=== PATIENT | male | born 1950 | race Caucasian/White ===

== ENCOUNTER 2020-10-23 12:51 | Inpatient (IN) ==
[2020-10-23 13:30] LABS: Basophils # (auto) 0.02 K/uL (0-0.2); Basophils % (auto) 0.2 %; Eosinophils % (auto) 0.9 %; Hematocrit (blood only) 48.5 % (42-52); Hemoglobin 16.2 g/dL (14.0-18.0); Immature Granulocytes # (auto) 0.05 K/uL (0.00-0.02); Immature Granulocytes % (auto) 0.4 %; Lymphocytes # (auto) 1.21 K/uL (1.2-3.4); Lymphocytes % (auto) 10.8 %; Mean Corpuscular Hemoglobin 31.9 pg (25-34); Mean Corpuscular Hgb Conc 33.4 g/dL (32-36); Mean Corpuscular Volume 95.5 fL (80-100); Mean Platelet Volume 9.8 fL (7.4-10.4); Monocytes # (auto) 0.76 K/uL (0.11-0.59); Monocytes % (auto) 6.8 %; Neutrophils # (auto) 9.08 K/uL (1.4-6.5); Neutrophils % (auto) 80.9 %; Platelet Count 237 K/uL (130-400); RDW Coefficient of Variation 13.2 % (11.5-14.5); RDW Standard Deviation 45.7 fL (36.4-46.3); Red Blood Count 5.08 M/uL (4.7-6.1); White Blood Count 11.22 K/uL (4.8-10.8)
[2020-10-23 13:41] LABS: INR 1.2 (0.9-1.1); Partial Thromboplastin Time 26.7 Seconds (21.0-31.0); Prothrombin Time 12.7 Seconds (9.0-12.0)
--- NOTE | 2020-10-23 13:54 | XRay Report ---
XR chest 1V portable HISTORY: 70 years-old Male SANDY acute shortness of breath COMPARISON: None TECHNIQUE: Portable AP view of the chest FINDINGS: Cardiac silhouette is enlarged. Pulmonary vascular congestion. Bilateral reticular opacities. There i s no pneumothorax or large pleural effusion. Inferior costophrenic angles are excluded from the field -of-view. IMPRESSION: Cardiomegaly with bilateral reticular opacities suggestive of pulmonary vascular congesti on versus a nonspecific pneumonitis. ACT 112: Negative or not required by law. The above report was generated using voice recognition software. It may contain grammatical, syntax o r spelling errors. Electronically signed by: Fito Wiggins M.D. 10/23/2020 1:52 PM
[2020-10-23 13:59] LABS: Albumin Globulin Ratio 0.6 (0.9-2); Albumin Level 2.9 gm/dl (3.4-5.0); BUN Creatinine Ratio 15.5 (10-20); Bilirubin,Total 0.7 mg/dl (0.2-1); Calcium 8.9 mg/dl (8.5-10.1); Creatinine Clr Calc Pharmacy 94.3 ml/min; Est GFR (African American) 89.5; Est GFR (Non-African American) 77.3; Globulin 4.7 gm/dl (2.5-4.0); Potassium 4.7 mmol/L (3.5-5.1); Total Protein 7.6 gm/dl (6.4-8.2); Troponin I 0.308 ng/ml (0-0.045)
[2020-10-23] MEDS ORDERED: Heparin IV Adult Wt-Based Low-Dose WITH Bolus Protocol IV STA (14:13)
[2020-10-23 14:20] LABS: Beta-Hydroxybutyrate 9.27 mg/dl (0.2-2.81)
[2020-10-23] MEDS ORDERED: FUROSEMIDE 40 MG/4 ML VIAL IV STA (14:35)
--- NOTE | 2020-10-23 14:53 | Emergency Department Note ---
Impression & Plan SANDY (dyspnea on exertion), Non-ST elevation NC (NSTEMI), Fluid overload ED Provider Note Provider: Sven Mejia MD DATE OF SERVICE:10/23/2020 CHIEF COMPLAINT: Dyspnea on exertion HISTORY OF PRESENT ILLNESS: Patient is a 70-year-old gentleman history of type 2 diabetes and hypertension presenting here today referred from his primary care office for evaluation of abnormal EKG and dyspnea on exertion. Patient is with past 6 weeks he had dyspnea on exertion with any exertion. Denies chest pain. Denies any chest pain or shortness of breath at rest. Patient states he knows may be little bit leg swelling but denies any pain in his arms jaw back abdomen. Denies nausea or vomiting. Denies fever or significant cough. Patient states has not had issues like this before but it seems to be getting worse the shortness of breath when he exerts himself. Patient was given 4 baby aspirin prior to arrival. REVIEW OF SYSTEMS: A total of 10 review of systems was obtained and negative except as stated above in the HPI. PAST MEDICAL HISTORY: As noted above MEDICATIONS: Reviewed home medications of the patient. SOCIAL HISTORY: Former smoker, lives at home with PHYSICAL EXAM: GENERAL: alert and oriented in no acute distress on stretcher Head: normocephalic and atraumatic EYES: No injection, discharge or icterus. NECK: Trachea midline. LUNGS: Airway patent. No retractions. Breath sounds clear HEART: Regular rate and rhythm. No chest wall tenderness ABDOMEN: Soft and non-tender, without guarding or rebound. SKIN: Acyanotic, warm, dry, without rashes EXTREMITIES: Without significant deformity or tenderness with 2+ bilateral lower extremity edema. NEUROLOGICAL: No focal deficits. No aphasia. No facial droop or slurred speech. EK bpm normal sinus rhythm with PVC and right bundle branch block. Do not see clear ST segment elevation QTC is prolonged CONTINUOUS CARDIAC MONITORING: was ordered and showed a heart rate of 96 bpm in normal sinus rhythm occasional PVC Patient's laboratory studies and imaging reviewed. Differential includes Reactive airway disease, pneumonia, pneumothorax, COPD, CHF, infections, cardiac ischemia, pulmonary embolism, musculoskeletal, gastrointestinal, as well as other pathologies. IMPRESSION/MEDICAL DECISION MAKING: Patient immediately seen EKG by the computer reading ST segment elevation but on review does not appear to have actual ST segment elevation and the patient is not having active chest pain or shortness of breath well at rest in the bed. Symptoms ongoing for approximately 6 weeks and likely are related to exertion. Question if he has had some possible underlying cardiac event causing heart failure given some pulmonary edema seen on the chest x-ray and some edema in the lower extremities. No recent travel. I doubt this acute intra-abdominal or biliary related. Does not seem consistent with acute pancreatitis. No shortness of breath at rest. Lower suspicion for acute PE and I doubt acute aortic dissection given the history. Patient states he was already given aspirin today and will start on a heparin bolus and drip given the elevated troponin noted here. Given a dose of some Lasix as it does appear somewhat fluid overloaded. Discussed the patient agreed with the plan for further evaluation here in the hospital. Discussed with hospitalist team. DIAGNOSIS: Dyspnea on exertion, NSTEMI, fluid overload DISPOSITION: Hospitalist will evaluate Patient was agreeable with this plan. Critical Care I have personally spent 31 minutes of critical care time in the direct management of this patient. This includes bedside care, interpretation of diagnostic studies, and testing, discussion with consultants, patient, and family members, and other required patient management activities. These 31 minutes is in excess of all separately billable procedures. Past Med/Surg History Surgical History (Updated 10/23/20 @ 16:00 by Lynn Oneil PA-C) S/P appendectomy Social History Smoking Status: Current every day smoker Feels Safe at Home: Yes Allergies Allergies Allergy/AdvReac Type Severity Reaction Status Date / Time No Known Drug Allergies Allergy Unknown NONE Verified 10/23/20 14:36 Home Meds Home Medications Medication Instructions Recorded Confirmed aspirin 81 mg PO DAILY 10/23/20 10/23/20 citalopram 10 mg PO QPM 10/23/20 10/23/20 losartan 50 mg PO QAM 10/23/20 10/23/20 metformin 1,000 mg PO QAM 10/23/20 10/23/20 Results & Data (ED) Vital Signs Vital Signs - 24 hr 10/23/20 12:57 10/23/20 13:10 10/23/20 13:13 Temperature 36.4 C L Temperature Source Oral Pulse Rate 96 H 101 H 98 H Pulse Rate from SpO2 Sensor 100 H Respiratory Rate 22 26 H 24 Respiratory Effort / Characteristics Non-Labored Respiratory Depth Normal Blood Pressure 125/83 160/100 H Blood Pressure Mean 97 109 Pulse Oximetry 95 94 Oxygen Delivery Method Room Air Sepsis Recent Fever Within 48 Hours No Sepsis New/Unexplained Change in Mental Status No Sepsis Action Taken by Nursing No Action Required 10/23/20 13:20 10/23/20 13:31 10/23/20 15:10 Temperature Temperature Source Pulse Rate 91 H 91 H Pulse Rate from SpO2 Sensor 96 H 92 H Respiratory Rate 20 24 Respiratory Effort / Characteristics Respiratory Depth Blood Pressure 124/76 112/82 Blood Pressure Mean 86 84 Pulse Oximetry 96 95 97 Oxygen Delivery Method Room Air Sepsis Recent Fever Within 48 Hours Sepsis New/Unexplained Change in Mental Status Sepsis Action Taken by Nursing 10/23/20 15:55 Temperature Temperature Source Pulse Rate 91 H Pulse Rate from SpO2 Sensor Respiratory Rate 24 Respiratory Effort / Characteristics Respiratory Depth Blood Pressure 112/82 Blood Pressure Mean Pulse Oximetry 97 Oxygen Delivery Method Room Air Sepsis Recent Fever Within 48 Hours Sepsis New/Unexplained Change in Mental Status Sepsis Action Taken by Nursing Laboratory Data Result diagrams: 10/23/20 13:20 10/23/20 13:20 Lab Results 10/23/20 10/23/20 10/23/20 Range/Units 13:20 13:20 13:20 WBC 11.22 H (4.8-10.8) K/uL RBC 5.08 (4.7-6.1) M/uL Hgb 16.2 (14.0-18.0) g/dL Hct 48.5 (42-52) % MCV 95.5 (80-100) fL MCH 31.9 (25-34) pg MCHC 33.4 (32-36) g/dL RDW Std Deviation 45.7 (36.4-46.3) fL RDW Coeff of Galindo 13.2 (11.5-14.5) % Plt Count 237 (130-400) K/uL MPV 9.8 (7.4-10.4) fL Immature Gran % (Auto) 0.4 % Neut % (Auto) 80.9 % Lymph % (Auto) 10.8 % [place] % (Auto) 6.8 % Eos % (Auto) 0.9 % Baso % (Auto) 0.2 % Neut # (Auto) 9.08 H (1.4-6.5) K/uL Lymph # (Auto) 1.21 (1.2-3.4) K/uL [place] # (Auto) 0.76 H (0.11-0.59) K/uL Eos # (Auto) 0.10 (0-0.5) K/uL Baso # (Auto) 0.02 (0-0.2) K/uL Immature Gran # (Auto) 0.05 H (0.00-0.02) K/uL PT 12.7 H (9.0-12.0) Seconds INR 1.2 H (0.9-1.1) APTT 26.7 (21.0-31.0) Seconds PTT Ratio 1.0 Sodium 132 L (136-145) mmol/L Potassium 4.7 (3.5-5.1) mmol/L Chloride 98 (98-107) mmol/L Carbon Dioxide 26 (21-32) mmol/L Anion Gap 8.0 (3-11) BUN 15 (7-18) mg/dl Creatinine 0.98 (0.6-1.4) mg/dl Est Cr Clr Drug Dosing 94.3 ml/min Est GFR ( Amer) 89.5 Est GFR (Non-Af Amer) 77.3 BUN/Creatinine Ratio 15.5 (10-20) Glucose 348 H* (70-99) mg/dl Calcium 8.9 (8.5-10.1) mg/dl Total Bilirubin 0.7 (0.2-1) mg/dl AST 10 L (15-37) U/L ALT 21 (12-78) U/L Alkaline Phosphatase 79 (45-117) U/L Troponin I 0.308 H* (0-0.045) ng/ml NT-Pro-B Natriuret Pep 3755 H (0-900) pg/ml Total Protein 7.6 (6.4-8.2) gm/dl Albumin 2.9 L (3.4-5.0) gm/dl Globulin 4.7 H (2.5-4.0) gm/dl Albumin/Globulin Ratio 0.6 L (0.9-2) Lipase 95 (73-393) U/L Beta-Hydroxybutyric Acd 9.27 H (0.2-2.81) mg/dl COVID-19 Eval Order SARS-CoV-2, RNA, NAAT (NEGATIVE) 10/23/20 10/23/20 Range/Units 13:30 13:30 WBC (4.8-10.8) K/uL RBC (4.7-6.1) M/uL Hgb (14.0-18.0) g/dL Hct (42-52) % MCV (80-100) fL MCH (25-34) pg MCHC (32-36) g/dL RDW Std Deviation (36.4-46.3) fL RDW Coeff of [place] (11.5-14.5) % Plt Count (130-400) K/uL MPV (7.4-10.4) fL Immature Gran % (Auto) % Neut % (Auto) % Lymph % (Auto) % [place] % (Auto) % Eos % (Auto) % Baso % (Auto) % Neut # (Auto) (1.4-6.5) K/uL Lymph # (Auto) (1.2-3.4) K/uL [place] # (Auto) (0.11-0.59) K/uL Eos # (Auto) (0-0.5) K/uL Baso # (Auto) (0-0.2) K/uL Immature Gran # (Auto) (0.00-0.02) K/uL PT (9.0-12.0) Seconds INR (0.9-1.1) APTT (21.0-31.0) Seconds PTT Ratio Sodium (136-145) mmol/L Potassium (3.5-5.1) mmol/L Chloride (98-107) mmol/L Carbon Dioxide (21-32) mmol/L Anion Gap (3-11) BUN (7-18) mg/dl Creatinine (0.6-1.4) mg/dl Est Cr Clr Drug Dosing ml/min Est GFR ( Amer) Est GFR (Non-Af Amer) BUN/Creatinine Ratio (10-20) Glucose (70-99) mg/dl Calcium (8.5-10.1) mg/dl Total Bilirubin (0.2-1) mg/dl AST (15-37) U/L ALT (12-78) U/L Alkaline Phosphatase (45-117) U/L Troponin I (0-0.045) ng/ml NT-Pro-B Natriuret Pep (0-900) pg/ml Total Protein (6.4-8.2) gm/dl Albumin (3.4-5.0) gm/dl Globulin (2.5-4.0) gm/dl Albumin/Globulin Ratio (0.9-2) Lipase (73-393) U/L Beta-Hydroxybutyric Acd (0.2-2.81) mg/dl COVID-19 Eval Order Covid19 [facility] SARS-CoV-2, RNA, NAAT NEGATIVE (NEGATIVE) Administered Medications Heparin Sodium/Dextrose (Heparin Sodium/Dextrose) 25,000 units in 500 mls @ 20 mls/hr IV .Q24H MEKHI; Protocol Stop: 11/22/20 14:14 Last Admin: 10/23/20 15:15 Dose: 1,000 units/hr, 20 mls/hr Documented by: [id number] Cosigned by: [id number] Discontinued Medications Furosemide (Furosemide 40 Mg/4 Ml Vial) 20 mg IV NOW STA Stop: 10/23/20 14:36 Last Admin: 10/23/20 15:11 Dose: 20 mg Documented by: [id number] Heparin Sodium (Porcine) (Heparin Sod (Porcine) 1000 Unit/Ml 10 Ml Vial) Confirm Administered Dose 10,000 units .ROUTE .STK-MED ONE Stop: 10/23/20 15:07 Last Admin: 10/23/20 15:16 Dose: 4,000 units Documented by: [id number] Cosigned by: [id number] Heparin Sodium/Dextrose (Heparin Iv Low Dose With Bolus) 1 ea IV NOW STA; Protocol Stop: 10/23/20 14:14 Last Admin: 10/23/20 15:22 Dose: Not Given Documented by: [id number] Discharge Plan Visit Data Chief Complaint: Chest Pain Stated Complaint: CHEST PAIN, REFERRED BY ED Provider: Sven Mejia Discharge Problem: SANDY (dyspnea on exertion), Non-ST elevation NC (NSTEMI), Fluid overload Patient Disposition: Admitted As Inpatient Condition: Fair Discharge Instructions Interventions: ED Discharge Assessment Last Done: 10/23/20 15:55 Forms Stand Alone Forms: [employer] Prescriptions Prescriptions: No Action losartan 50 mg tablet 50 mg PO QAM RF: 0 citalopram 10 mg tablet 10 mg PO QPM RF: 0 metformin 500 mg tablet extended release 24 hr 1,000 mg PO QAM RF: 0 aspirin 81 mg Tablet 81 mg PO DAILY RF: 0 Referrals Referrals: Anthony Segovia MD [Primary Care Provider] - Discharge Problem: Fluid overload Qualifiers: Hypervolemia type: unspecified Qualified Code(s): E87.70 - Fluid overload, unspecified
[2020-10-23] MEDS ORDERED: HEPARIN SOD (PORCINE) 1000 UNIT/ML ONE (15:06)
[2020-10-23] MEDS: HEPARIN SODIUM/DEXTROSE 25,000 UNITS/500 ML BAG IV SCH (15:15)
--- NOTE | 2020-10-23 15:22 | History & Physical Report ---
Date of Service October 23, 2020 Assessment & Plan (1) SANDY (dyspnea on exertion): (2) Volume overload: This is a 70-year-old male with PMH of type 2 diabetes, hypertension, mild aortic stenosis, depression, history of CVA and other medical problems listed below who presents with progressive dyspnea exertion x6 weeks. -Progressive dyspnea x 6 weeks, orthopnea, BLE edema. O2 saturation of 97% on room air. Echo on file from 2017 with grade 1 diastolic dysfunction, mild aortic stenosis -CXR with cardiomegaly with bilateral reticular opacities suggestive of pulmonary vascular congestion versus a nonspecific pneumonitis -ECG here with sinus rhythm with short DC interval and occasional PVCs as well as right bundle branch block. Initial troponin elevated at 0.308. BNP elevated at 3755 -Echo ordered, trend troponin, repeat labs and ECG in AM -Strict I&Os, monitor daily weights -Given 20mg IV Lasix in ED. Gave an additional 40mg this evening per discussion with Dr. Brown -Reassess volume status in AM (3) Non-ST elevation CT (NSTEMI): Sent from clinic today after concern for new ST depressions in multiple leads including V4, V5 and lead I -Has not experienced any chest pain or dyspnea at rest -Reviewed ECGs with Dr. Brown, who feels they are consistent with known RBBB -Initial troponin 0.308 and was started on IV heparin. Repeat troponin 0.298 -No h/o CAD but multiple risk factors including HTN, DM and h/o tobacco use. Checking fasting lipids and a1c in AM -Continue IV heparin, trend troponin, monitor on tele, echo, repeat ECG in AM, cardiology consult, NPO @ [facility] (4) DM type 2 (diabetes mellitus, type 2): Last A1c of 9.9 in 01/2019 - repeat pending -Initial BSG 348 -Glycemic consult placed for inpatient mgmt as well OP medication optimization -BSG AC HS (5) Hypertension: Continue losartan in AM (6) Depression: Continue SSRI DVT Ppx: IV heparin Code status: FULL PCP: Juliette Dispo: Admitted to PCU. Plan to return home once medically stable. Patient seen in collaboration with Dr. Tipton. Please see addendum. History of Present Illness Chief Complaint: Dyspnea on exertion Primary Care Provider: Anthony Segovia MD This is a 70-year-old male with PMH of type 2 diabetes, hypertension, mild aortic stenosis, depression, history of CVA and other medical problems listed below who presents with progressive dyspnea exertion x6 weeks. Patient was seen at [facility] today and EKG per records was concerning for new ST depressions in multiple leads including V4, V5 and lead I. Given full dose aspirin but refused transport per EMS. Daughter drove him to ED for further evaluation. Patient endorses progressive shortness of breath, particularly when walking around the house more than 20 feet. Is also started to feel significantly short of breath when lying flat and has been sleeping in a re cliner at night for the past 5 weeks. No chest pain or palpitations. Had a productive cough 1 month ago that is dissipated. Does notice some swelling in legs but denies any overall weight gain. Denies any history of known CAD or congestive heart failure. Did follow with Dr. Brown 3 years ago for chest pain and at that time underwent an echocardiogram showing grade 1 diastolic dysfunction as well as moderate LVH. Had a stress echo at that time that showed no inducible ischemia. In ED, patient is afebrile and hemodynamically stable. Comfortable at rest, without chest pain or shortness of breath. EKG here with sinus rhythm with short DC interval and occasional PVCs as well as right bundle branch block. Initial troponin mildly elevated at 0.308. BNP elevated at 3755. Initial gluc ose 348 with beta hydroxybutyric acid 9.27. CXR with cardiomegaly with bilateral reticular opacities suggestive of pulmonary vascular congestion versus a nonspecific pneumonitis. Started on IV heparin for concern of NSTEMI and given 20mg IV Lasix for volume overload. Covid screen is negative. Denies any fever, chills, lightheadedness, headache, palpitations, wheezing, nausea, vomiting, abdominal pain, dysuria, diarrhea or constipation. Allergies Allergy/AdvReac Type Severity Reaction Status Date / Time No Known Drug Allergies Allergy Unknown NONE Verified 10/23/20 14:36 Home Medications Medication Instructions Recorded Confirmed Type aspirin 81 mg PO DAILY 10/23/20 10/23/20 History citalopram 10 mg PO QPM 10/23/20 10/23/20 History losartan 50 mg PO QAM 10/23/20 10/23/20 History metformin 1,000 mg PO QAM 10/23/20 10/23/20 History Past Med/Surg History Medical History (Updated 10/23/20 @ 16:13 by Lynn Oneil PA-C) Depression DM type 2 (diabetes mellitus, type 2) History of tobacco use Hypertension Surgical History (Updated 10/23/20 @ 16:00 by Lynn Oneil PA-C) S/P appendectomy Family History Other Family history unknown Social History (Updated 10/23/20 @ 16:10 by Lynn Oneil PA-C) Smoking Status: Former smoker Tobacco Type: Cigarettes packs per day: 2; Years Smoked: 30; Smoking End Date: 1999; Second Hand Exposure: Yes; Do You Dip or Chew Tobacco: Yes; Tobacco Cessation Education Requested by Patient: No Hx Alcohol Use: No Hx Substance Use: No Preferred Language: Niuean Yard Stocker Required: No Beliefs That Will Affect Care: None Current Living Situation: Spouse and Family Current Living Situation Comment: son in law, daughter, granddaughter, spouse Feels Safe at Home: Yes Safety Concerns: Feels Safe At This Time and Afraid for Self Assistive Devices: Denture - Upper, Denture - Lower and Glasses Review of Systems Review of Systems: At least ten systems reviewed and negative except as noted in the HPI. Physical Exam Physical Exam: General Appearance: WD/WN, vitals as above, NAD, sitting up in bed, pleasant, conversing easily at rest Head: normocephalic, atraumatic Eyes: normal inspection, PERRL, conjunctivae normal, anicteric sclerae ENT: external ear and nose normal, oropharynx normal Neck: normal visual inspection, trachea midline, no thyromegaly Respiratory: normal respiratory effort, bibasilar crackles, no wheezing or rhonchi. No accessory muscle use Cardiovascular: regular rate, rhythm, systolic murmur, normal peripheral pulses, 1+ BLE edema. Vessels: unable to assess for JVD 2/2 habitus Chest: normal inspection of chest Abdomen/GI: normal bowel sounds, soft, nontender, no hepatosplenomegaly Extremities/Musculoskeletal: no cyanosis or clubbing, extremities motor strength 5/5 Neurologic: PERRL, EOMI, accommodation nl, no face palsy, no dysarthria, CN's II-XI intact bilaterally and moves all extremities Psychiatric: A+Ox3, euthymic affect Skin: no rashes, normal color, warm/dry Results & Data Results & Data ([facility]) Vital Signs (Past 12 Hours) Vital Signs Temp Pulse Resp BP Pulse Ox 10/23/20 15:10 91 H 24 112/82 97 10/23/20 13:31 91 H 20 124/76 95 10/23/20 13:20 96 10/23/20 13:13 98 H 24 10/23/20 13:10 101 H 26 H 160/100 H 94 10/23/20 12:57 36.4 C L 96 H 22 125/83 95 Laboratory Results Short CBC 10/23/20 10/23/20 10/23/20 Range/Units 13:20 13:20 13:20 WBC 11.22 H (4.8-10.8) K/uL RBC 5.08 (4.7-6.1) M/uL Hgb 16.2 (14.0-18.0) g/dL Hct 48.5 (42-52) % MCV 95.5 (80-100) fL MCH 31.9 (25-34) pg MCHC 33.4 (32-36) g/dL RDW Std Deviation 45.7 (36.4-46.3) fL RDW Coeff of Galindo 13.2 (11.5-14.5) % Plt Count 237 (130-400) K/uL MPV 9.8 (7.4-10.4) fL Immature Gran % (Auto) 0.4 % Neut % (Auto) 80.9 % Lymph % (Auto) 10.8 % [place] % (Auto) 6.8 % Eos % (Auto) 0.9 % Baso % (Auto) 0.2 % Neut # (Auto) 9.08 H (1.4-6.5) K/uL Lymph # (Auto) 1.21 (1.2-3.4) K/uL [place] # (Auto) 0.76 H (0.11-0.59) K/uL Eos # (Auto) 0.10 (0-0.5) K/uL Baso # (Auto) 0.02 (0-0.2) K/uL Immature Gran # (Auto) 0.05 H (0.00-0.02) K/uL PT 12.7 H (9.0-12.0) Seconds INR 1.2 H (0.9-1.1) APTT 26.7 (21.0-31.0) Seconds PTT Ratio 1.0 Sodium 132 L (136-145) mmol/L Potassium 4.7 (3.5-5.1) mmol/L Chloride 98 (98-107) mmol/L Carbon Dioxide 26 (21-32) mmol/L Anion Gap 8.0 (3-11) BUN 15 (7-18) mg/dl Creatinine 0.98 (0.6-1.4) mg/dl Est Cr Clr Drug Dosing 94.3 ml/min Est GFR ( Amer) 89.5 Est GFR (Non-Af Amer) 77.3 BUN/Creatinine Ratio 15.5 (10-20) Glucose 348 H* (70-99) mg/dl Calcium 8.9 (8.5-10.1) mg/dl Total Bilirubin 0.7 (0.2-1) mg/dl AST 10 L (15-37) U/L ALT 21 (12-78) U/L Alkaline Phosphatase 79 (45-117) U/L Troponin I 0.308 H* (0-0.045) ng/ml NT-Pro-B Natriuret Pep 3755 H (0-900) pg/ml Total Protein 7.6 (6.4-8.2) gm/dl Albumin 2.9 L (3.4-5.0) gm/dl Globulin 4.7 H (2.5-4.0) gm/dl Albumin/Globulin Ratio 0.6 L (0.9-2) Lipase 95 (73-393) U/L Beta-Hydroxybutyric Acd 9.27 H (0.2-2.81) mg/dl COVID-19 Eval Order SARS-CoV-2, RNA, NAAT (NEGATIVE) 10/23/20 10/23/20 Range/Units 13:30 13:30 WBC (4.8-10.8) K/uL RBC (4.7-6.1) M/uL Hgb (14.0-18.0) g/dL Hct (42-52) % MCV (80-100) fL MCH (25-34) pg MCHC (32-36) g/dL RDW Std Deviation (36.4-46.3) fL RDW Coeff of Galindo (11.5-14.5) % Plt Count (130-400) K/uL MPV (7.4-10.4) fL Immature Gran % (Auto) % Neut % (Auto) % Lymph % (Auto) % [place] % (Auto) % Eos % (Auto) % Baso % (Auto) % Neut # (Auto) (1.4-6.5) K/uL Lymph # (Auto) (1.2-3.4) K/uL [place] # (Auto) (0.11-0.59) K/uL Eos # (Auto) (0-0.5) K/uL Baso # (Auto) (0-0.2) K/uL Immature Gran # (Auto) (0.00-0.02) K/uL PT (9.0-12.0) Seconds INR (0.9-1.1) APTT (21.0-31.0) Seconds PTT Ratio Sodium (136-145) mmol/L Potassium (3.5-5.1) mmol/L Chloride (98-107) mmol/L Carbon Dioxide (21-32) mmol/L Anion Gap (3-11) BUN (7-18) mg/dl Creatinine (0.6-1.4) mg/dl Est Cr Clr Drug Dosing ml/min Est GFR ( Amer) Est GFR (Non-Af Amer) BUN/Creatinine Ratio (10-20) Glucose (70-99) mg/dl Calcium (8.5-10.1) mg/dl Total Bilirubin (0.2-1) mg/dl AST (15-37) U/L ALT (12-78) U/L Alkaline Phosphatase (45-117) U/L Troponin I (0-0.045) ng/ml NT-Pro-B Natriuret Pep (0-900) pg/ml Total Protein (6.4-8.2) gm/dl Albumin (3.4-5.0) gm/dl Globulin (2.5-4.0) gm/dl Albumin/Globulin Ratio (0.9-2) Lipase (73-393) U/L Beta-Hydroxybutyric Acd (0.2-2.81) mg/dl COVID-19 Eval Order [facility]19 [facility] SARS-CoV-2, RNA, NAAT NEGATIVE (NEGATIVE) BMP 10/23/20 13:20 Sodium 132 L Potassium 4.7 Chloride 98 Carbon Dioxide 26 BUN 15 Creatinine 0.98 Glucose 348 H* Calcium 8.9 Cardiac Enzymes 10/23/20 Range/Units 13:20 Troponin I 0.308 H* (0-0.045) ng/ml Liver Function 10/23/20 Range/Units 13:20 Total Bilirubin 0.7 (0.2-1) mg/dl AST 10 L (15-37) U/L ALT 21 (12-78) U/L Alkaline Phosphatase 79 (45-117) U/L Albumin 2.9 L (3.4-5.0) gm/dl Diagnostic Findings CXR: IMPRESSION: Cardiomegaly with bilateral reticular opacities suggestive of pulmonary vascular congestion versus a nonspecific pneumonitis. ECG Indication: SOB/dyspnea Rhythm: sinus rhythm Findings: + 1st degree AV block, + PVC and + RBBB Change: no significant change Code Status & VTE Plan VTE Prophylaxis Plan VTE Prophylaxis will be ordered: Yes Supervising Physician Co-Signing Physician Notes Pt seen and examined by me, care coordinated with Lynn Oneil PA-C, pls refer to her note above for further detail. Pt is a 70-year-old male w/ type 2 diabetes, hypertension, mild aortic stenosis, depression, history of CVA who presents with progressive dyspnea exertion x6 weeks. Outpt EKG per records was concerning for new ST depressions in multiple leads including V4, V5 and lead I. Given full dose aspirin. Patient endorses progressive shortness of breath with mild exertion, also endorses orthopnea. Had a cough w/ clear sputum production about a week ago that has mostly resolved. Mild swelling in LEs but denies any overall weight gain. Currently sitting up in bed in NAD, able to speak in full sentences, alert and oriented. Heart sounds regular no murmur noted. Lungs w/ bibasilar crackles but no wheezing or rhonchi noted, normal resp. effort. Abdomen soft, nontender, obese, + bowel sounds. LE with mild b/l LE edema. Pt is able to move extremities spontaneously. Skin warm, dry, well perfused. CXR in ED concerning for pulm. congestion, proBNP elevated, trop elevated. Pt received 20 mg IV lasix and was started on IV heparin. Discussed with cardiology, recommend additional IV lasix this evening. Will cont. IV heparin, obtain echo. Khoi Tipton MD
[2020-10-23] MEDS ORDERED: PHARMACY GLYCEMIC MGMT CONSULT STA (15:23)
[2020-10-23] MEDS ORDERED: PHARMACY GLYCEMIC MGMT CONSULT PRN (15:25)
--- NOTE | 2020-10-23 15:42 | Electrocardiogram Report ---
Test Reason : Blood Pressure : / mmHG Vent. Rate : 093 BPM Atrial Rate : 093 BPM P-R Int : 230 ms QRS Dur : 136 ms QT Int : 408 ms P-R-T Axes : 042 123 091 degrees QTc Int : 507 ms Sinus rhythm with 1st degree A-V block with frequent Premature ventricular complexes Possible Left atrial enlargement Right bundle branch block with repolarization abnormality Abnormal ECG When compared with ECG of 04-AUG-2016 15:40, Premature ventricular complexes are now Present Right bundle branch block has replaced Non-specific intra-ventricular conduction delay Confirmed by Robert Whitt ([id number]) on 10/23/2020 3:41:46 PM Referred By: Adina Chaves Confirmed By:Robert Whitt
[2020-10-23] MEDS ORDERED: GLUCAGON FOR INJ 1 MG VIAL SQ PRN (16:19)
[2020-10-23] MEDS ORDERED: GLUCOSE 10 TABS/TUBE PO PRN (16:19)
[2020-10-23] MEDS ORDERED: DEXTROSE 50% 50 ML SYRINGE IV PRN (16:19)
[2020-10-23] MEDS ORDERED: GLUCOSE 40% GEL 15 GM TUBE PO PRN (16:19)
[2020-10-23] MEDS ORDERED: CARBOHYDRATES FOR HYPOGLYCEMIA PO PRN (16:19)
[2020-10-23] MEDS ORDERED: ACETAMINOPHEN 325 MG TAB PO PRN (16:19)
[2020-10-23 16:22] LABS: Appearance Urine Clear (Clear); Bilirubin Urine Negative (Negative); Blood Urine Trace (Negative); Color Urine Yellow; Glucose Urine UA 3+ (Negative); Ketones Urine Negative (Negative); Leukocyte Esterase Urine Negative (Negative); Nitrite Urine Negative (Negative); Protein Urine Trace (Negative); Urobilinogen Urine Negative (Negative)
[2020-10-23] MEDS ORDERED: INSULIN GLARGINE SOLOSTAR 100 UNITS/ML 3 ML PEN SC ONE (16:30)
[2020-10-23 16:48] LABS: Bacteria Urine Negative (Negative); Epithelial Cell Urine 0-5 /lpf (0-5); RBC Urine 0-4 /hpf (0-4); WBC Urine 0-5 /hpf (0-5)
[2020-10-23] MEDS: INSULIN ASPART 100 UNITS/ML 3 ML PEN SC SCH ×2 (17:37→20:55)
[2020-10-23] MEDS ORDERED: INSULIN HUMAN REGULAR PER UNIT 10 UNITS in SYRINGE 9.9 ML IV ONE (18:00)
[2020-10-23] MEDS ORDERED: FUROSEMIDE 40 MG in SYRINGE 0 ML IV ONE (18:00)
[2020-10-23] MEDS ORDERED: FUROSEMIDE 40 MG/4 ML VIAL IV ONE (18:00)
[2020-10-23 21:33] LABS: Partial Thromboplastin Ratio 1.1; Partial Thromboplastin Time 29.8 Seconds (21.0-31.0)
[2020-10-23 21:49] LABS: BUN Creatinine Ratio 14.5 (10-20); Creatinine Clr Calc Pharmacy 75.5 ml/min; Est GFR (African American) 70.8; Est GFR (Non-African American) 61.1; Potassium 3.6 mmol/L (3.5-5.1)
[2020-10-23] MEDS ORDERED: HEPARIN IV BOLUS 4,500 UNITS in SYRINGE 0 ML IV ONE (22:00)
[2020-10-23] MEDS: CITALOPRAM 20 MG TAB PO SCH (22:11)
[2020-10-24] MEDS: INSULIN ASPART 100 UNITS/ML 3 ML PEN SC SCH ×6 (00:07→21:00)
[2020-10-24 04:05] LABS: Hematocrit (blood only) 48.1 % (42-52); Hemoglobin 15.8 g/dL (14.0-18.0); Mean Corpuscular Hemoglobin 31.3 pg (25-34); Mean Corpuscular Hgb Conc 32.8 g/dL (32-36); Mean Corpuscular Volume 95.2 fL (80-100); Mean Platelet Volume 9.6 fL (7.4-10.4); Platelet Count 249 K/uL (130-400); RDW Coefficient of Variation 13.1 % (11.5-14.5); RDW Standard Deviation 44.9 fL (36.4-46.3); Red Blood Count 5.05 M/uL (4.7-6.1)
[2020-10-24 04:16] LABS: Partial Thromboplastin Ratio 1.4; Partial Thromboplastin Time 39.2 Seconds (21.0-31.0)
[2020-10-24 04:25] LABS: Calcium 8.7 mg/dl (8.5-10.1); Creatinine Clr Calc Pharmacy 90.5 ml/min; Est GFR (African American) 89.5; Est GFR (Non-African American) 77.3; Potassium 3.9 mmol/L (3.5-5.1)
[2020-10-24] MEDS ORDERED: FUROSEMIDE 40 MG in SYRINGE 0 ML IV ONE (07:27)
[2020-10-24] MEDS: ASPIRIN 81 MG ECTAB PO SCH (07:34)
[2020-10-24] MEDS ORDERED: FUROSEMIDE 40 MG/4 ML VIAL IV ONE (08:00)
[2020-10-24 08:10] LABS: Estimated Average Glucose 260 mg/dl; Hemoglobin A1C 10.7 % (4.5-5.6)
[2020-10-24] MEDS ORDERED: LOSARTAN POTASSIUM 50 MG TAB PO SCH (09:00)
[2020-10-24] MEDS ORDERED: INSULIN GLARGINE SOLOSTAR 100 UNITS/ML 3 ML PEN SC SCH ×2 (09:00→21:00)
[2020-10-24] MEDS ORDERED: POTASSIUM CHLORIDE CRTAB 20 MEQ TABCR PO STA (10:12)
--- NOTE | 2020-10-24 10:12 | Cardiology Consultation ---
Date of Consultation October 24, 2020 Assessment & Plan (1) Heart failure, systolic, with acute decompensation: (2) CAD (coronary artery disease): (3) Ischemic cardiomyopathy: (4) COPD (chronic obstructive pulmonary disease): (5) Aortic stenosis: (6) Mitral regurgitation: (7) Frequent PVCs: Mr. Tomas presents with acute decompensated systolic heart failure and significant volume overload. It appears that he likely had a severe ischemic event several months ago and is now suffering from progressive ischemic cardiomyopathy. 2D echocardiogram shows severely reduced LV systolic function, EF 15 to 20% and low flow low gradient aortic stenosis along with moderate mitral regurgitation. EKG without acute ischemia. Denies any episodes of chest pain. No shortness of breath at rest. The above findings, pathophysiology and medical implications were discussed with the patient at great lengths. At this point, I believe the most prudent course of action would be to diurese him given that he is not having any rest symptoms with a goal of undergoing right and left cardiac catheterization in the near future. Emergent cardiac catheterization is not indicated at this point. He has been started on heparin and this will be continued. Will require aggressive diuresis with close monitoring of electrolytes and renal function. 40 mg of IV Lasix ordered now along with Ortiz placement should he desire. We will give another 40 of IV Lasix later on this afternoon and follow his volume status clinically. I will also start him on low-dose evidence-based beta-pau at this time with metoprolol succinate 12.5 mg p.o. x1 now. He is on losartan as an outpatient and this will likely be transitioned to Entresto prior to discharge. Aldosterone antagonist will also be started this admission. We will continue to follow closely. History of Present Illness Reason for Consultation: SOB and EKG changes Requesting Physician: Lynn Oneil PA-C Attending Physician: Antoine Vallejo MD History of Present Illness Mr. Burnett is a very pleasant 70-year-old gentleman who was seen by me in the remote past for mild aortic stenosis. He presented to [facility] emergency department on 10/23/2020 at the direction of his primary care physician for evaluation of shortness of breath and EKG changes. The patient states he has been having shortness of breath with exertion for approximately 6 months now. He states he thought he had Covid over the summer but testing was unremarkable. He notes that since then he is dyspnea has been progressing from only being able to walk 100 yards without getting short of breath to now not being able to walk more than 3 steps without becoming dyspneic. Denies any chest pain at all. Does not remember having any episodes of chest pain either. Significant orthopnea sleeping in a recliner for several months now. Also with progressive lower extremity edema and fatigue. His daughter finally convinced him to get checked for his progressive symptoms. Upon arrival he was found to be significantly volume overloaded and concerns for EKG changes and he was sent to the ER. In the ER he was found to be significantly volume overloaded and started on diuretics with brisk diuresis overnight. Patient states he continues to feel fine at rest but dyspneic with walking to the restroom. PAST MEDICAL HISTORY: 1. Diabetes. 2. Asymptomatic blocked PACs. 3. Obesity. 4. Tobacco abuse. 5. Likely COPD. 6. Dyslipidemia. 7. Hypertension. 8. Vertebral insufficiency. 9. Mild aortic stenosis and regurgitation with a possibly bicuspid valve. Allergies Allergy/AdvReac Type Severity Reaction Status Date / Time No Known Drug Allergies Allergy Unknown NONE Verified 10/23/20 14:36 Home Medications Medication Instructions Recorded Confirmed Type aspirin 81 mg PO DAILY 10/23/20 10/23/20 History citalopram 10 mg PO QPM 10/23/20 10/23/20 History losartan 50 mg PO QAM 10/23/20 10/23/20 History metformin 1,000 mg PO QAM 10/23/20 10/23/20 History Patient History Medical History Depression DM type 2 (diabetes mellitus, type 2) History of tobacco use Hypertension Surgical History S/P appendectomy Family History Other Family history unknown Social History Smoking Status: Former smoker Tobacco Type: Cigarettes packs per day: 2; Years Smoked: 30; Smoking End Date: 1999; Second Hand Exposure: Yes; Do You Dip or Chew Tobacco: Yes; Tobacco Cessation Education Requested by Patient: No Hx Alcohol Use: No Hx Substance Use: No Preferred Language: Faroese Rayon Winder Required: No Beliefs That Will Affect Care: None Current Living Situation: Spouse and Family Current Living Situation Comment: son in law, daughter, granddaughter, spouse Feels Safe at Home: Yes Safety Concerns: Feels Safe At This Time and Afraid for Self Assistive Devices: Glasses Review of Systems Review of Systems: All systems reviewed & are unremarkable except as noted in HPI & below Physical Exam Physical Exam: General: Awake, alert and oriented x 3. Mild conversational dyspnea while seated in chair. Occasional pursed lip breathing. HEENT: Normocephalic, atraumatic. Pupils equal, round and reactive to light and accommodation. Extraocular muscles are intact. Anicteric sclera. Moist mucous membranes. Neck: No JVD. No bruit. Cardiovascular: Regular. Positive S-4. Normal S-1 and S-2. No S-3. 3/6 mid to late systolic ejection murmur, greatest at the right sternal border, second intercostal space with radiation to the bilateral carotids. No rubs. Pulmonary: Poor air movement the bilateral bases with diminished breath sounds diffusely. Scattered rhonchi. Abdomen: Bowel sounds x 4, soft. No rebound, guarding or tenderness. No organomegaly. Extremities: No clubbing, cyanosis. +1 bilateral lower extremity pitting edema. +2 pedal pulses bilaterally. Skin: Warm and dry. Results & Data ([facility]) Vital Signs (Past 12 Hours) Vital Signs Temp Pulse Pulse Resp BP Pulse Ox 10/24/20 07:24 36.7 C 91 H 20 130/88 97 10/24/20 03:26 36.3 C L 86 20 116/75 94 10/23/20 23:45 36.8 C 89 18 105/73 95 10/23/20 23:12 90 Laboratory Results Laboratory Results - last 24 hr 10/23/20 10/23/20 10/23/20 13:20 13:20 13:20 WBC 11.22 H RBC 5.08 Hgb 16.2 Hct 48.5 MCV 95.5 MCH 31.9 MCHC 33.4 RDW Std Deviation 45.7 RDW Coeff of Galindo 13.2 Plt Count 237 MPV 9.8 Immature Gran % (Auto) 0.4 Neut % (Auto) 80.9 Lymph % (Auto) 10.8 Faulk % (Auto) 6.8 Eos % (Auto) 0.9 Baso % (Auto) 0.2 Neut # (Auto) 9.08 H Lymph # (Auto) 1.21 Faulk # (Auto) 0.76 H Eos # (Auto) 0.10 Baso # (Auto) 0.02 Immature Gran # (Auto) 0.05 H PT 12.7 H INR 1.2 H APTT 26.7 PTT Ratio 1.0 Sodium 132 L Potassium 4.7 Chloride 98 Carbon Dioxide 26 Anion Gap 8.0 BUN 15 Creatinine 0.98 Est Cr Clr Drug Dosing 94.3 Est GFR ( Amer) 89.5 Est GFR (Non-Af Amer) 77.3 BUN/Creatinine Ratio 15.5 Glucose 348 H* POC Glucose Estimat Average Glucose Hemoglobin A1c Calcium 8.9 Total Bilirubin 0.7 AST 10 L ALT 21 Alkaline Phosphatase 79 Troponin I 0.308 H* NT-Pro-B Natriuret Pep 3755 H Total Protein 7.6 Albumin 2.9 L Globulin 4.7 H Albumin/Globulin Ratio 0.6 L Triglycerides Cholesterol LDL Cholesterol, Calc VLDL Cholesterol, Calc HDL Cholesterol Cholesterol/HDL Ratio Lipase 95 Beta-Hydroxybutyric Acd 9.27 H Urine Color Urine Appearance Urine pH Ur Specific Brea Urine Protein Urine Glucose (UA) Urine Ketones Urine Blood Urine Nitrite Urine Bilirubin Urine Urobilinogen Ur Leukocyte Esterase Urine RBC Urine WBC Ur Epithelial Cells Urine Bacteria COVID-19 Eval Order Hepatitis C Ab Screen SARS-CoV-2, RNA, NAAT 10/23/20 10/23/20 10/23/20 13:20 13:30 13:30 WBC RBC Hgb Hct MCV MCH MCHC RDW Std Deviation RDW Coeff of Galindo Plt Count MPV Immature Gran % (Auto) Neut % (Auto) Lymph % (Auto) Faulk % (Auto) Eos % (Auto) Baso % (Auto) Neut # (Auto) Lymph # (Auto) Faulk # (Auto) Eos # (Auto) Baso # (Auto) Immature Gran # (Auto) PT INR APTT PTT Ratio Sodium Potassium Chloride Carbon Dioxide Anion Gap BUN Creatinine Est Cr Clr Drug Dosing Est GFR ( Amer) Est GFR (Non-Af Amer) BUN/Creatinine Ratio Glucose POC Glucose Estimat Average Glucose Hemoglobin A1c Calcium Total Bilirubin AST ALT Alkaline Phosphatase Troponin I NT-Pro-B Natriuret Pep Total Protein Albumin Globulin Albumin/Globulin Ratio Triglycerides Cholesterol LDL Cholesterol, Calc VLDL Cholesterol, Calc HDL Cholesterol Cholesterol/HDL Ratio Lipase Beta-Hydroxybutyric Acd Urine Color Urine Appearance Urine pH Ur Specific Brea Urine Protein Urine Glucose (UA) Urine Ketones Urine Blood Urine Nitrite Urine Bilirubin Urine Urobilinogen Ur Leukocyte Esterase Urine RBC Urine WBC Ur Epithelial Cells Urine Bacteria COVID-19 Eval [facility] C Ab Screen Neg SARS-CoV-2, RNA, NAAT NEGATIVE 10/23/20 10/23/20 10/23/20 15:45 17:24 17:32 WBC RBC Hgb Hct MCV MCH MCHC RDW Std Deviation RDW Coeff of Galindo Plt Count MPV Immature Gran % (Auto) Neut % (Auto) Lymph % (Auto) Faulk % (Auto) Eos % (Auto) Baso % (Auto) Neut # (Auto) Lymph # (Auto) Faulk # (Auto) Eos # (Auto) Baso # (Auto) Immature Gran # (Auto) PT INR APTT PTT Ratio Sodium Potassium Chloride Carbon Dioxide Anion Gap BUN Creatinine Est Cr Clr Drug Dosing Est GFR ( Amer) Est GFR (Non-Af Amer) BUN/Creatinine Ratio Glucose POC Glucose 308 H* Estimat Average Glucose Hemoglobin A1c Calcium Total Bilirubin AST ALT Alkaline Phosphatase Troponin I 0.298 H* NT-Pro-B Natriuret Pep Total Protein Albumin Globulin Albumin/Globulin Ratio Triglycerides Cholesterol LDL Cholesterol, Calc VLDL Cholesterol, Calc HDL Cholesterol Cholesterol/HDL Ratio Lipase Beta-Hydroxybutyric Acd Urine Color Yellow Urine Appearance Clear Urine pH 5.0 Ur Specific Brea 1.020 Urine Protein Trace H Urine Glucose (UA) 3+ H Urine Ketones Negative Urine Blood Trace H Urine Nitrite Negative Urine Bilirubin Negative Urine Urobilinogen Negative Ur Leukocyte Esterase Negative Urine RBC 0-4 Urine WBC 0-5 Ur Epithelial Cells 0-5 Urine Bacteria Negative COVID-19 Eval Order Hepatitis C Ab Screen SARS-CoV-2, RNA, NAAT 10/23/20 10/23/20 10/23/20 20:29 21:16 21:16 WBC RBC Hgb Hct MCV MCH MCHC RDW Std Deviation RDW Coeff of Galindo Plt Count MPV Immature Gran % (Auto) Neut % (Auto) Lymph % (Auto) Faulk % (Auto) Eos % (Auto) Baso % (Auto) Neut # (Auto) Lymph # (Auto) Faulk # (Auto) Eos # (Auto) Baso # (Auto) Immature Gran # (Auto) PT INR APTT 29.8 PTT Ratio 1.1 Sodium 136 Potassium 3.6 D Chloride 100 Carbon Dioxide 28 Anion Gap 9.0 BUN 17 Creatinine 1.19 Est Cr Clr Drug Dosing 75.5 Est GFR ( Amer) 70.8 Est GFR (Non-Af Amer) 61.1 BUN/Creatinine Ratio 14.5 Glucose 107 H POC Glucose 115 H Estimat Average Glucose Hemoglobin A1c Calcium 9.0 Total Bilirubin AST ALT Alkaline Phosphatase Troponin I NT-Pro-B Natriuret Pep Total Protein Albumin Globulin Albumin/Globulin Ratio Triglycerides Cholesterol LDL Cholesterol, Calc VLDL Cholesterol, Calc HDL Cholesterol Cholesterol/HDL Ratio Lipase Beta-Hydroxybutyric Acd Urine Color Urine Appearance Urine pH Ur Specific Brea Urine Protein Urine Glucose (UA) Urine Ketones Urine Blood Urine Nitrite Urine Bilirubin Urine Urobilinogen Ur Leukocyte Esterase Urine RBC Urine WBC Ur Epithelial Cells Urine Bacteria COVID-19 Eval Order Hepatitis C Ab Screen SARS-CoV-2, RNA, NAAT 10/23/20 10/24/20 10/24/20 23:45 00:59 03:49 WBC RBC Hgb Hct MCV MCH MCHC RDW Std Deviation RDW Coeff of Galindo Plt Count MPV Immature Gran % (Auto) Neut % (Auto) Lymph % (Auto) Faulk % (Auto) Eos % (Auto) Baso % (Auto) Neut # (Auto) Lymph # (Auto) Faulk # (Auto) Eos # (Auto) Baso # (Auto) Immature Gran # (Auto) PT INR APTT PTT Ratio Sodium Potassium Chloride Carbon Dioxide Anion Gap BUN Creatinine Est Cr Clr Drug Dosing Est GFR ( Amer) Est GFR (Non-Af Amer) BUN/Creatinine Ratio Glucose POC Glucose 121 H 136 H Estimat Average Glucose Hemoglobin A1c Calcium Total Bilirubin AST ALT Alkaline Phosphatase Troponin I 0.324 H* NT-Pro-B Natriuret Pep Total Protein Albumin Globulin Albumin/Globulin Ratio Triglycerides Cholesterol LDL Cholesterol, Calc VLDL Cholesterol, Calc HDL Cholesterol Cholesterol/HDL Ratio Lipase Beta-Hydroxybutyric Acd Urine Color Urine Appearance Urine pH Ur Specific Brea Urine Protein Urine Glucose (UA) Urine Ketones Urine Blood Urine Nitrite Urine Bilirubin Urine Urobilinogen Ur Leukocyte Esterase Urine RBC Urine WBC Ur Epithelial Cells Urine Bacteria COVID-19 Eval Order Hepatitis C Ab Screen SARS-CoV-2, RNA, NAAT 10/24/20 10/24/20 10/24/20 03:54 03:54 03:54 WBC 12.20 H RBC 5.05 Hgb 15.8 Hct 48.1 MCV 95.2 MCH 31.3 MCHC 32.8 RDW Std Deviation 44.9 RDW Coeff of Galindo 13.1 Plt Count 249 MPV 9.6 Immature Gran % (Auto) Neut % (Auto) Lymph % (Auto) Faulk % (Auto) Eos % (Auto) Baso % (Auto) Neut # (Auto) Lymph # (Auto) Faulk # (Auto) Eos # (Auto) Baso # (Auto) Immature Gran # (Auto) PT INR APTT PTT Ratio Sodium 133 L Potassium 3.9 Chloride 99 Carbon Dioxide 29 Anion Gap 5.0 BUN 19 H Creatinine 0.98 Est Cr Clr Drug Dosing 90.5 Est GFR ( Amer) 89.5 Est GFR (Non-Af Amer) 77.3 BUN/Creatinine Ratio 19.0 Glucose 145 H POC Glucose Estimat Average Glucose 260 Hemoglobin A1c 10.7 H Calcium 8.7 Total Bilirubin AST ALT Alkaline Phosphatase Troponin I NT-Pro-B Natriuret Pep Total Protein Albumin Globulin Albumin/Globulin Ratio Triglycerides 113 Cholesterol 156 LDL Cholesterol, Calc 95 VLDL Cholesterol, Calc 23 HDL Cholesterol 38 Cholesterol/HDL Ratio 4 Lipase Beta-Hydroxybutyric Acd Urine Color Urine Appearance Urine pH Ur Specific Brea Urine Protein Urine Glucose (UA) Urine Ketones Urine Blood Urine Nitrite Urine Bilirubin Urine Urobilinogen Ur Leukocyte Esterase Urine RBC Urine WBC Ur Epithelial Cells Urine Bacteria COVID-19 Eval Order Hepatitis C Ab Screen SARS-CoV-2, RNA, NAAT 10/24/20 10/24/20 03:54 07:23 WBC RBC Hgb Hct MCV MCH MCHC RDW Std Deviation RDW Coeff of Galindo Plt Count MPV Immature Gran % (Auto) Neut % (Auto) Lymph % (Auto) Faulk % (Auto) Eos % (Auto) Baso % (Auto) Neut # (Auto) Lymph # (Auto) Faulk # (Auto) Eos # (Auto) Baso # (Auto) Immature Gran # (Auto) PT INR APTT 39.2 H PTT Ratio 1.4 Sodium Potassium Chloride Carbon Dioxide Anion Gap BUN Creatinine Est Cr Clr Drug Dosing Est GFR ( Amer) Est GFR (Non-Af Amer) BUN/Creatinine Ratio Glucose POC Glucose 164 H Estimat Average Glucose Hemoglobin A1c Calcium Total Bilirubin AST ALT Alkaline Phosphatase Troponin I NT-Pro-B Natriuret Pep Total Protein Albumin Globulin Albumin/Globulin Ratio Triglycerides Cholesterol LDL Cholesterol, Calc VLDL Cholesterol, Calc HDL Cholesterol Cholesterol/HDL Ratio Lipase Beta-Hydroxybutyric Acd Urine Color Urine Appearance Urine pH Ur Specific Brea Urine Protein Urine Glucose (UA) Urine Ketones Urine Blood Urine Nitrite Urine Bilirubin Urine Urobilinogen Ur Leukocyte Esterase Urine RBC Urine WBC Ur Epithelial Cells Urine Bacteria COVID-19 Eval Order Hepatitis C Ab Screen SARS-CoV-2, RNA, NAAT Diagnostic Findings See separate echocardiogram report. Twelve-lead EKG performed upon arrival independently reviewed at this time shows normal sinus rhythm with first-degree AV block and frequent PVCs. Right bundle branch block with repolarization abnormalities. No ST segment elevations are present. Follow-up EKGs remain unchanged. Medications Administered Current Inpatient Medications Acetaminophen (Acetaminophen 325 Mg Tab) 650 mg PO Q4H PRN PRN Reason: Pain or Fever Stop: 11/22/20 16:18 Aspirin (Aspirin 81 Mg Ectab) 81 mg PO DAILY [facility] Stop: 11/23/20 08:59 Last Admin: 10/24/20 07:34 Dose: 81 mg Documented by: Citalopram Hydrobromide (Citalopram 20 Mg Tab) 10 mg PO QPM MEKHI Stop: 11/22/20 21:59 Last Admin: 10/23/20 22:11 Dose: 10 mg Documented by: Dextrose (Dextrose 50% 50 Ml Syringe) 25 - 50 ml IV UD PRN; Protocol PRN Reason: Hypoglycemia Protocol Stop: 11/22/20 16:18 Glucagon (Glucagon For Inj 1 Mg Vial) 1 mg SQ UD PRN; Protocol PRN Reason: Hypoglycemia Protocol Stop: 11/22/20 16:18 Glucose (Glucose 10 Tabs/Tube) 4 - 8 tabs PO UD PRN; Protocol PRN Reason: Hypoglycemia Protocol Stop: 11/22/20 16:18 Glucose (Glucose 40% Gel 15 Gm Tube) 15 - 30 gm PO UD PRN; Protocol PRN Reason: Hypoglycemia Protocol Stop: 11/22/20 16:18 Heparin Sodium/Dextrose (Heparin Sodium/Dextrose) 25,000 units in 500 mls @ 28 mls/hr IV .[id number]; Protocol Stop: 11/22/20 14:14 Last Titration: 10/24/20 04:26 Dose: 1,400 units/hr, 28 mls/hr Documented by: Insulin Aspart (Insulin Aspart 100 Units/Ml 3 Ml Pen) 0 units SC ACHS [facility] Stop: 11/22/20 16:29 Last Admin: 10/24/20 07:33 Dose: 2 units Documented by: Insulin Glargine (Insulin Glargine Solostar 100 Units/Ml 3 Ml Pen) 25 units SC BID [facility] Stop: 11/23/20 08:59 Last Admin: 10/24/20 08:36 Dose: 13 units Documented by: Losartan Potassium (Losartan Potassium 50 Mg Tab) 50 mg PO QAM [facility] Stop: 11/23/20 08:59 Last Admin: 10/24/20 07:34 Dose: 50 mg Documented by: Miscellaneous (Carbohydrates For Hypoglycemia ) 15 - 30 gm PO UD PRN PRN Reason: Hypoglycemia Protocol Stop: 11/22/20 16:18 Miscellaneous Information (Pharmacy Glycemic Mgmt Consult) 1 ea N/A UD PRN; Protocol PRN Reason: Consult Stop: 11/22/20 15:24
[2020-10-24 10:50] LABS: Partial Thromboplastin Ratio 1.2; Partial Thromboplastin Time 33.6 Seconds (21.0-31.0)
[2020-10-24] MEDS: METOPROLOL SUCC 25MG EXT REL TAB PO SCH (10:59)
[2020-10-24] MEDS: HEPARIN SODIUM/DEXTROSE 25,000 UNITS/500 ML BAG IV SCH ×2 (11:03→23:39)
[2020-10-24] MEDS ORDERED: HEPARIN IV BOLUS 4,000 UNITS in SYRINGE 0 ML IV ONE ×2 (11:15→19:15)
--- NOTE | 2020-10-24 12:42 | Pharmacy Report ---
Glycemic Control Consultation - Date of Service October 24, 2020 - Scope Scope: Glycemic Pharmacist consulted for glycemic control and to write orders per [facility] inpatient glycemic control protocol. - Objective Weight: 130.5 kg Accuchecks BSG (last 24hrs): 10/23/20 10/23/20 10/23/20 13:20 17:32 20:29 Glucose 348 H* POC Glucose 308 H* 115 H 10/23/20 10/23/20 10/24/20 21:16 23:45 03:49 Glucose 107 H POC Glucose 121 H 136 H 10/24/20 10/24/20 10/24/20 03:54 07:23 11:12 Glucose 145 H POC Glucose 164 H 177 H Laboratory Data (last 24hrs): 10/23/20 10/23/20 10/24/20 13:20 21:16 03:54 Potassium 4.7 3.6 D 3.9 Carbon Dioxide 26 28 29 Anion Gap 8.0 9.0 5.0 Creatinine 0.98 1.19 0.98 Est Cr Clr Drug Dosing 94.3 75.5 90.5 Beta-Hydroxybutyric Acd 9.27 H HbA1c: Hemoglobin A1c 10.7 % (4.5-5.6) H 10/24/20 03:54 - Recent Pertinent Medications Outpatient Anti-diabetic Regimen: * metformin 1 gm qAM * A1c = 10.7 % 10/24/2020 The patient is currently receiving: * Basal insulin: Lantus 50 units SQ x 1 * Correctional Insulin: Novolog Correction per scale ACHS Goal Range: Low 110 mg/dL - High 140 mg/dL Correction Factor: 20 mg/dL/unit * Prandial insulin: Per carb ratio of 1 unit per 6 grams CHO consumed * Oral Agents: Risk Factors for Insulin Resistance: * Diet: NPO - Assessment & Plan Assessment & Plan: ASSESSMENT: * Mr Tomas is a 70 y/o M admitted with CHF. He has poorly controlled T2DM on one oral medication. Patient initially given Lantus 50 units (0.38 units/kg) x 1 plus IV bolus due to admitting blood sugar of 308 mg/dL. * Overnight BSGs were 121-136 mg/dL. * Provide Lantus 25 units this morning (weight-based stress of 2) then will utilize scale tonight with weight-based dosing including a zero dose. * Weight-based stress of 2 ordered. * Hold oral medications PLAN FOR INPATIENT GLYCEMIC CONTROL: * Holding outpatient oral diabetes medications * Basal insulin * Lantus 25 units SQ x 1 then 0-25 units SQ HS (hold if BSG < 160 mg/dL; 13 units if BSG 160-200 mg/dL; 25 units if BSG > 200 mg/dL) * Bolus insulin * NovoLog per scale ACHS or Q6hrs while NPO * Goal Range: Low 110 mg/dL - High 140 mg/dL * Correction Factor: 20 mg/dL/unit * Nutritional / Prandial insulin per carb ratio of 1 unit per 6 grams CHO consumed * Please note that the plan above was derived based on current level of insulin resistance and hospital stress. These recommendations are appropriate for inpatient admission only. Plan of care upon discharge will need to be reassessed to avoid potential outpatient hypo/hyperglycemia. Thank you.
--- NOTE | 2020-10-24 13:38 | Electrocardiogram Report ---
Test Reason : Blood Pressure : / mmHG Vent. Rate : 097 BPM Atrial Rate : 097 BPM P-R Int : 080 ms QRS Dur : 140 ms QT Int : 368 ms P-R-T Axes : 072 093 083 degrees QTc Int : 467 ms Poor data quality, interpretation may be adversely affected Sinus rhythm with sinus arrhythmia with short NH Right bundle branch block Abnormal ECG When compared with ECG of 23-OCT-2020 13:05, Premature ventricular complexes are no longer Present NH interval has decreased Confirmed by Robert Whitt ([id number]) on 10/24/2020 1:38:07 PM Referred By: Adina Chaves Confirmed By:Robert Whitt
--- NOTE | 2020-10-24 13:45 | Hospitalist Progress Note ---
Date of Service October 24, 2020 Assessment & Plan (1) Heart failure, systolic, with acute decompensation: CAD (coronary artery disease) Ischemic cardiomyopathy COPD (chronic obstructive pulmonary disease) Aortic stenosis Mitral regurgitation Frequent PVCs -as per admission history and physical on 10/23/2020 "70-year-old male with PMH of type 2 diabetes, hypertension, mild aortic stenosis, depression, history of CVA and other medical problems listed below who presents with progressive dyspnea exertion x6 weeks. Patient was seen at [facility] today and EKG per records was concerning for new ST depressions in multiple leads including V4, V5 and lead I. Given full dose aspirin but refused transport per EMS. Daughter drove him to ED for further evaluation. Patient endorses progressive shortness of breath, particularly when walking around the house more than 20 feet. Is also started to feel significantly short of breath when lying flat and has been sleeping in a recliner at night for the past 5 weeks. No chest pain or palpitations. Had a productive cough 1 month ago that is dissipated. Does notice some swelling in legs but denies any overall weight gain. Denies any history of known CAD or congestive heart failure. Did follow with Dr. Brown 3 years ago for chest pain and at that time underwent an echocardiogram showing grade 1 diastolic dysfunction as well as moderate LVH. Had a stress echo at that time that showed no inducible ischemia." -admission CXR with cardiomegaly with bilateral reticular opacities suggestive of pulmonary vascular congestion versus a nonspecific pneumonitis; admission EKG sinus rhythm with short TN interval and occasional PVCs as well as right bundle branch block, initial troponin elevated at 0.308, BNP elevated at 3755; patient was started on IV Lasix on admission -as per 10/24/2020 cardiology assessment that patient has "acute decompensated systolic heart failure and significant volume overload. It appears that he likely had a severe ischemic event several months ago and is now suffering from progressive ischemic cardiomyopathy. 2D echocardiogram shows severely reduced LV systolic function, EF 15 to 20% and low flow low gradient aortic stenosis along with moderate mitral regurgitation. EKG without acute ischemia. Denies any episodes of chest pain. No shortness of breath at rest. -current plans by cardiology is for patient to undergo right and left cardiac catheterization after further IV Lasix and IV heparin on 10/24/2020; is also started on low dose Beta pau (2) DM type 2 (diabetes mellitus, type 2): Type 2 diabetes mellitus without terminal operator current use of insulin, with hyperglycemia -HbA1c 9.9 in January 2019 -HbA1c 10.7 on this admission -hold home dose metformin while inpatient -admission blood sugar 348 and pharmacy glycemic control was asked to help with glucose management while in the hospital (3) Hypertension: -on losartan 50 mg daily -will hold losartan on 10/25/2020 because of planned cardiac cath -likely will be transition from home dose losartan to Entresto or spironolactone on this admission at later date -continue to follow cardiology recommendations (4) Depression: -Continue SSRI DVT Ppx: IV heparin Code status: FULL Admission and Anticipated Discharge Date Admission Date: October 23, 2020 Subjective Patient seen and examined while on IV heparin. Patient he is making urine with the IV Lasix. Patient continues to have bilateral lower extremity swelling. Has some crackles on lung exam but patient breathing comfortably on room air. No acute distress. Patient denies chest pain. No abdomen pain. No nausea. No vomiting. No other symptoms on review of systems Review of Systems Review of Systems: All systems reviewed & are unremarkable except as noted in Subjective Physical Exam Constitutional: cooperative and comfortable Eyes: PERRL, conjunctivae normal, anicteric sclerae EOM intact bilaterally ENMT: external ear and nose normal, oropharynx normal Neck: normal visual inspection Respiratory: normal respiratory effort Auscultation: + crackles Cardiovascular: Rate/Rhythm: regular rate and regular rhythm Gastrointestinal (Abdomen): normal bowel sounds, soft, nontender, no hepatosplenomegaly Musculoskeletal: Head/Neck/Chest: normocephalic and head atraumatic Extremities: + lower leg abnormality (edema of bilateral lower extremities) Neurologic: PERRL, EOMI, accommodation nl, no face palsy, no dysarthria CN's II-XI intact bilaterally and moves all extremities Psychiatric: A+Ox3, euthymic affect Results & Data Results & Data ([facility]) Vital Signs (Past 12 Hours) Vital Signs Temp Pulse Pulse Resp BP Pulse Ox 10/24/20 11:42 36.4 C L 90 21 121/84 92 10/24/20 08:00 84 10/24/20 07:24 36.7 C 91 H 20 130/88 97 10/24/20 03:26 36.3 C L 86 20 116/75 94
[2020-10-24] MEDS ORDERED: ACETAMINOPHEN 325 MG TAB PO PRN (13:46)
--- NOTE | 2020-10-24 14:02 | Electrocardiogram Report ---
Test Reason : Blood Pressure : / mmHG Vent. Rate : 091 BPM Atrial Rate : 091 BPM P-R Int : 086 ms QRS Dur : 134 ms QT Int : 540 ms P-R-T Axes : 000 099 111 degrees QTc Int : 664 ms Poor data quality, interpretation may be adversely affected Sinus rhythm with short MT Right bundle branch block Abnormal ECG When compared with ECG of 23-OCT-2020 15:54, (unconfirmed) QT has lengthened Confirmed by Robert Whitt ([id number]) on 10/24/2020 2:02:23 PM Referred By: Adina Chaves Confirmed By:Robert Whitt
--- NOTE | 2020-10-24 14:09 | Electrocardiogram Report ---
Test Reason : Blood Pressure : / mmHG Vent. Rate : 091 BPM Atrial Rate : 091 BPM P-R Int : 080 ms QRS Dur : 138 ms QT Int : 536 ms P-R-T Axes : 083 097 093 degrees QTc Int : 659 ms Sinus rhythm with short AL Right bundle branch block Abnormal ECG When compared with ECG of 24-OCT-2020 06:24, (unconfirmed) No significant change was found Confirmed by Robert Whitt ([id number]) on 10/24/2020 2:08:53 PM Referred By: Adina Chaves Confirmed By:Robert Whitt
[2020-10-24] MEDS: FUROSEMIDE 40 MG in SYRINGE 0 ML IV SCH (17:13)
[2020-10-24 18:12] LABS: Partial Thromboplastin Ratio 1.3
[2020-10-24] MEDS: SACUBITRIL-VALSARTAN 24-26 MG TAB PO SCH (20:56)
[2020-10-24] MEDS: CITALOPRAM 20 MG TAB PO SCH (20:56)
[2020-10-25 02:06] LABS: Partial Thromboplastin Ratio 1.9
[2020-10-25 02:10] LABS: Partial Thromboplastin Time 54.3 Seconds (21.0-31.0)
[2020-10-25] MEDS: HEPARIN SODIUM/DEXTROSE 25,000 UNITS/500 ML BAG IV SCH ×2 (02:20→18:58)
[2020-10-25 06:46] LABS: Basophils # (auto) 0.03 K/uL (0-0.2); Basophils % (auto) 0.3 %; Eosinophils # (auto) 0.17 K/uL (0-0.5); Eosinophils % (auto) 1.8 %; Hematocrit (blood only) 49.4 % (42-52); Hemoglobin 16.1 g/dL (14.0-18.0); Immature Granulocytes # (auto) 0.05 K/uL (0.00-0.02); Immature Granulocytes % (auto) 0.5 %; Lymphocytes # (auto) 1.81 K/uL (1.2-3.4); Lymphocytes % (auto) 18.9 %; Mean Corpuscular Hemoglobin 31.1 pg (25-34); Mean Corpuscular Hgb Conc 32.6 g/dL (32-36); Mean Corpuscular Volume 95.4 fL (80-100); Mean Platelet Volume 9.2 fL (7.4-10.4); Monocytes # (auto) 0.78 K/uL (0.11-0.59); Monocytes % (auto) 8.1 %; Neutrophils # (auto) 6.75 K/uL (1.4-6.5); Neutrophils % (auto) 70.4 %; Platelet Count 243 K/uL (130-400); RDW Coefficient of Variation 13.3 % (11.5-14.5); RDW Standard Deviation 46.4 fL (36.4-46.3); Red Blood Count 5.18 M/uL (4.7-6.1); White Blood Count 9.59 K/uL (4.8-10.8)
[2020-10-25 07:07] LABS: Partial Thromboplastin Ratio 1.8
[2020-10-25 07:12] LABS: Partial Thromboplastin Time 49.2 Seconds (21.0-31.0)
[2020-10-25 07:25] LABS: Albumin Level 2.7 gm/dl (3.4-5.0); BUN Creatinine Ratio 21.1 (10-20); Calcium 8.8 mg/dl (8.5-10.1); Creatinine Clr Calc Pharmacy 104.6 ml/min; Est GFR (African American) 102.1; Est GFR (Non-African American) 88.1; Potassium 3.5 mmol/L (3.5-5.1)
[2020-10-25 07:28] LABS: Albumin Globulin Ratio 0.6 (0.9-2); Bilirubin,Total 0.9 mg/dl (0.2-1); Globulin 4.4 gm/dl (2.5-4.0); Total Protein 7.1 gm/dl (6.4-8.2)
[2020-10-25 07:33] LABS: Magnesium 2.3 mg/dl (1.8-2.4)
[2020-10-25] MEDS: INSULIN ASPART 100 UNITS/ML 3 ML PEN SC SCH ×4 (08:05→20:32)
[2020-10-25] MEDS: SACUBITRIL-VALSARTAN 24-26 MG TAB PO SCH ×2 (08:06→20:31)
[2020-10-25] MEDS: FUROSEMIDE 40 MG in SYRINGE 0 ML IV SCH ×3 (08:06→18:38)
[2020-10-25] MEDS: METOPROLOL SUCC 25MG EXT REL TAB PO SCH (08:06)
[2020-10-25] MEDS: ASPIRIN 81 MG ECTAB PO SCH (08:06)
[2020-10-25] MEDS ORDERED: INSULIN GLARGINE SOLOSTAR 100 UNITS/ML 3 ML PEN SC ONE (09:00)
--- NOTE | 2020-10-25 10:20 | Hospitalist Progress Note ---
Date of Service October 25, 2020 Assessment & Plan (1) Heart failure, systolic, with acute decompensation: CAD (coronary artery disease) Ischemic cardiomyopathy COPD (chronic obstructive pulmonary disease) Aortic stenosis Mitral regurgitation Frequent PVCs -as per admission history and physical on 10/23/2020 "70-year-old male with PMH of type 2 diabetes, hypertension, mild aortic stenosis, depression, history of CVA and other medical problems listed below who presents with progressive dyspnea exertion x6 weeks. Patient was seen at [facility] today and EKG per records was concerning for new ST depressions in multiple leads including V4, V5 and lead I. Given full dose aspirin but refused transport per EMS. Daughter drove him to ED for further evaluation. Patient endorses progressive shortness of breath, particularly when walking around the house more than 20 feet. Is also started to feel significantly short of breath when lying flat and has been sleeping in a recliner at night for the past 5 weeks. No chest pain or palpitations. Had a productive cough 1 month ago that is dissipated. Does notice some swelling in legs but denies any overall weight gain. Denies any history of known CAD or congestive heart failure. Did follow with Dr. Brown 3 years ago for chest pain and at that time underwent an echocardiogram showing grade 1 diastolic dysfunction as well as moderate LVH. Had a stress echo at that time that showed no inducible ischemia." -admission CXR with cardiomegaly with bilateral reticular opacities suggestive of pulmonary vascular congestion versus a nonspecific pneumonitis; admission EKG sinus rhythm with short NE interval and occasional PVCs as well as right bundle branch block, initial troponin elevated at 0.308, BNP elevated at 3755; patient was started on IV Lasix on admission -as per 10/24/2020 cardiology assessment that patient has "acute decompensated systolic heart failure and significant volume overload. It appears that he likely had a severe ischemic event several months ago and is now suffering from progressive ischemic cardiomyopathy. 2D echocardiogram shows severely reduced LV systolic function, EF 15 to 20% and low flow low gradient aortic stenosis along with moderate mitral regurgitation. EKG without acute ischemia. Denies any episodes of chest pain. No shortness of breath at rest. -current plans by cardiology is for patient to undergo right and left cardiac catheterization after further IV Lasix and IV heparin on 10/24/2020; was also started on low dose Beta pau -10/25/2020: patient seen and examined at the bedside. Patient is scheduled to cardiac slab tripper at noon time. Patient examined by hospitalist while sitting up in the chair. He is breathing comfortably on room air. He continues to have bilateral lower extremity edema and crackles of bilateral lower lung wills. Vel kearney denies acute chest pain or pain elsewhere of the body. His review of systems are negative for any other symptoms (2) DM type 2 (diabetes mellitus, type 2): Type 2 diabetes mellitus without fci current use of insulin, with hyperglycemia -HbA1c 9.9 in January 2019 -HbA1c 10.7 on this admission -hold home dose metformin while inpatient -admission blood sugar 348 and pharmacy glycemic control was asked to help with glucose management while in the hospital (3) Hypertension: -on losartan 50 mg daily -will hold losartan on 10/25/2020 because of planned cardiac cath -likely will be transition from home dose losartan to Entresto or spironolactone on this admission at later date -continue to follow cardiology recommendations (4) Depression: -Continue SSRI DVT Ppx: IV heparin Code status: FULL Admission and Anticipated Discharge Date Admission Date: October 23, 2020 Subjective -10/25/2020: patient seen and examined at the bedside. Patient is scheduled to cardiac slab tripper at noon time. Patient examined by hospitalist while sitting up in the chair. He is breathing comfortably on room air. He continues to have bilateral lower extremity edema and crackles of bilateral lower lung wills. Patient denies acute chest pain or pain elsewhere of the body. His review of systems are negative for any other symptoms Review of Systems Review of Systems: All systems reviewed & are unremarkable except as noted in Subjective Physical Exam Constitutional: cooperative and comfortable Eyes: PERRL, conjunctivae normal, anicteric sclerae EOM intact bilaterally ENMT: external ear and nose normal, oropharynx normal Neck: normal visual inspection Respiratory: normal respiratory effort Auscultation: + crackles Cardiovascular: Rate/Rhythm: regular rate and regular rhythm Gastrointestinal (Abdomen): normal bowel sounds, soft, nontender, no hepatosplenomegaly Musculoskeletal: Head/Neck/Chest: normocephalic and head atraumatic Extremities: + lower leg abnormality (edema of bilateral lower extremities) Neurologic: PERRL, EOMI, accommodation nl, no face palsy, no dysarthria CN's II-XI intact bilaterally and moves all extremities Psychiatric: A+Ox3, euthymic affect Results & Data Results & Data ([facility]) Vital Signs (Past 12 Hours) Vital Signs Temp Pulse Pulse Resp BP Pulse Ox 10/25/20 07:41 36.6 C 77 20 102/65 92 10/25/20 07:30 73 10/25/20 02:47 36.5 C 82 18 114/76 93 10/25/20 00:03 83 10/24/20 23:25 36.8 C 86 16 107/73 94
--- NOTE | 2020-10-25 10:49 | Cardiology Progress Note ---
Date of Service October 25, 2020 Assessment & Plan (1) Heart failure, systolic, with acute decompensation: (2) CAD (coronary artery disease): (3) Ischemic cardiomyopathy: (4) COPD (chronic obstructive pulmonary disease): (5) Aortic stenosis: (6) Mitral regurgitation: (7) Frequent PVCs: Mr. Tomas presents with acute decompensated systolic heart failure and significant volume overload. It appears that he likely had a severe ischemic event several months ago and is now suffering from progressive ischemic cardiomyopathy. 2D echocardiogram shows severely reduced LV systolic function, EF 15 to 20% and low flow low gradient aortic stenosis along with moderate mitral regurgitation. EKG without acute ischemia. Denies any episodes of chest pain. No shortness of breath at rest. The above findings, pathophysiology and medical implications were discussed with the patient at great lengths. He has diuresed well overnight and is now able to lay flat. We will proceed with right and left heart cath today. 10 beat run of nonsustained ventricular tachycardia overnight, obstructive sleep apnea? We will check nocturnal pulse ox tonight. Tolerating current medical regimen well. We will continue current doses of aspirin, metoprolol succinate, Entresto and IV Lasix. Aldosterone antagonist will also be started this admission. We will continue to follow closely. Admission and Anticipated Discharge Date Admission Date: October 23, 2020 Subjective Patient seen and examined, chart reviewed. States he has been doing okay at rest overnight. Is able to lay flat now without any issues. Productive cough has improved and continues to diurese briskly. Denies chest pain, shortness of breath at rest, palpitations, lightheadedness, dizziness or syncope. Telemetry reviewed: Normal sinus rhythm with a 10 beat run of nonsustained ventricular tachycardia overnight. Review of Systems Review of Systems: All systems reviewed & are unremarkable except as noted in HPI & below Physical Exam Physical Exam: General: Awake, alert and oriented x 3. Mild conversational dyspnea while seated in chair. Occasional pursed lip breathing. HEENT: Normocephalic, atraumatic. Pupils equal, round and reactive to light and accommodation. Extraocular muscles are intact. Anicteric sclera. Moist mucous membranes. Neck: No JVD. No bruit. Cardiovascular: Regular. Positive S-4. Normal S-1 and S-2. No S-3. 3/6 mid to late systolic ejection murmur, greatest at the right sternal border, second intercostal space with radiation to the bilateral carotids. No rubs. Pulmonary: Poor air movement the bilateral bases with diminished breath sounds diffusely. Scattered rhonchi. Abdomen: Bowel sounds x 4, soft. No rebound, guarding or tenderness. No organomegaly. Extremities: No clubbing, cyanosis. +1 bilateral lower extremity pitting edema. +2 pedal pulses bilaterally. Skin: Warm and dry. Results & Data ([facility]) Vital Signs (Past 12 Hours) Vital Signs Temp Pulse Pulse Resp BP Pulse Ox 10/25/20 07:41 36.6 C 77 20 102/65 92 10/25/20 07:30 73 10/25/20 02:47 36.5 C 82 18 114/76 93 10/25/20 00:03 83 10/24/20 23:25 36.8 C 86 16 107/73 94
[2020-10-25] MEDS ORDERED: HEPARIN (PORCINE) 1000 UNIT/ML 10 ML (CATH LAB USE ONLY) ONE (15:45)
[2020-10-25] MEDS ORDERED: niCARdipine HCL INJ 2.5 MG/ML 10 ML AMP ONE (15:45)
[2020-10-25] MEDS ORDERED: fentaNYL citrate 100 MCG/2 ML VIAL ONE (15:45)
[2020-10-25] MEDS ORDERED: MIDAZOLAM HCL 1 MG/ML 2ML VIAL ONE (15:46)
[2020-10-25] MEDS ORDERED: NITROGLYCERIN/D5W 100MCG/ML 20ML SYR ONE (15:46)
--- NOTE | 2020-10-25 16:13 | Pre Anesthesia Assessment ---
Date of Service October 25, 2020 Pre Sedation Assessment Vital Signs Temp Pulse Pulse Resp BP Pulse Ox 10/25/20 15:08 97.9 F 75 18 100/68 92 10/25/20 10:59 97.9 F 72 16 102/69 92 10/25/20 07:41 97.9 F 77 20 102/65 92 10/25/20 07:30 73 10/25/20 02:47 97.7 F 82 18 114/76 93 10/25/20 00:03 83 10/24/20 23:25 98.2 F 86 16 107/73 94 10/24/20 19:31 97.7 F 92 H 23 106/70 95 10/24/20 17:21 92 H 102/71 Cardiovascular RRR, no murmur, no edema Respiratory normal respiratory effort, lungs clear to auscultation Pre-Sedation Airway Assessment Smoking Status: Former smoker Hx Sleep Apnea: No Hx Difficult Intubation: No Short, Thick Neck: No Thyromental Distance: > or= 3.5 Finger Breadths Oral Cavity: + WNL Mallampati Class: III ASA: ASA3 Procedure Planning Contraindications for Sedation: none Current Medications Reviewed: Yes Notes The planned sedation has been discussed with the patient. Informed Consent was obtained. I have identified the patient, determined the appropriateness of sedation and have assessed the patient immediately prior to the procedure. All medicine(s) and interventions are by my order.
[2020-10-25 16:58] LABS: iSTAT Arterial Blood Gas HCO3 30 meg/L (19-24); iSTAT Arterial Blood Gas pCO2 48 mmHg (35-46); iSTAT Arterial Blood Gas pH 7.39 (7.35-7.45); iSTAT Arterial Blood Gas pO2 64 mmHg (80-95); iSTAT Carbon Dioxide 31 mmol/L (24-31); iSTAT Hematocrit 50 % (42-52); iSTAT Potassium 3.3 mmol/L (3.3-5.0); iSTAT Sodium 137 mmol/L (135-144)
--- NOTE | 2020-10-25 17:34 | Communication Note ---
Date of Service: October 25, 2020 Cardiac catheterization revealed severe multivessel coronary artery disease. Patient stable from a clinical standpoint. Plan: Return to telemetry unit and continue to diurese overnight. Okay to resume diet We will DC heparin We will reassess the patient clinically in the a.m. to discuss hospital hospital transfer for CABG evaluation versus outpatient evaluation, patient states that he would prefer outpatient.
[2020-10-25 17:46] LABS: iSTAT Arterial Blood Gas HCO3 31 meg/L (19-24); iSTAT Arterial Blood Gas pCO2 52 mmHg (35-46); iSTAT Arterial Blood Gas pH 7.38 (7.35-7.45); iSTAT Arterial Blood Gas pO2 34 mmHg (80-95); iSTAT Carbon Dioxide 33 mmol/L (24-31); iSTAT Hematocrit 50 % (42-52); iSTAT Potassium 3.3 mmol/L (3.3-5.0); iSTAT Sodium 137 mmol/L (135-144)
[2020-10-25] MEDS ORDERED: SODIUM CHLORIDE 0.9% 500 ML IV SCH (18:00)
[2020-10-25] MEDS ORDERED: FUROSEMIDE 40 MG in SYRINGE 0 ML IV SCH (18:30)
[2020-10-25] MEDS: POTASSIUM CHLORIDE CRTAB 20 MEQ TABCR PO SCH (18:38)
--- NOTE | 2020-10-25 19:28 | Post Anesthesia Assessment ---
Date of Service October 25, 2020 Post Sedation Assessment Vital Signs Temp Pulse Pulse Resp BP Pulse Ox 10/25/20 18:42 93 H 124/82 10/25/20 18:24 80 112/75 93 10/25/20 18:12 85 112/75 92 10/25/20 17:57 85 113/80 93 10/25/20 17:43 97.5 F L 87 22 121/73 95 10/25/20 15:08 97.9 F 75 18 100/68 92 10/25/20 10:59 97.9 F 72 16 102/69 92 10/25/20 07:41 97.9 F 77 20 102/65 92 10/25/20 07:30 73 10/25/20 02:47 97.7 F 82 18 114/76 93 10/25/20 00:03 83 10/24/20 23:25 98.2 F 86 16 107/73 94 10/24/20 19:31 97.7 F 92 H 23 106/70 95 Recovery Score Activity: Moves 4 extremities Respiration: Deep Breath/Cough Circulation: +/-20% PreAnes Value Consciousness: Fully Awake Oxygen Saturation: O2 needed for >90% Discharge Sedation Level of Care: Fast Track Phase II Post Sedation Plan On clinical assessment, the patient appears to have tolerated the sedation without complications. Patient is recovering as anticipated. Patient will continue to be monitored by nursing and may be discharged when sedation discharge criteria are met per below protocol. Upon Completions of procedure up to 15 minutes continue every 5 minute vital signs and the P.A.R. score; then discharge to a Phase I or Fast Track to Phase II per the following guidelines: * Discharge Patient to appropriate Phase II area if PAR is 8 or greater or r eturn to pre- procedure baseline. The post - procedure orders will be as directed. * If PAR score is less than 8 or not return to pre-procedure baseline then patient will follow Phase I monitoring till PAR is reached for Phase II. The Phase I may be done in procedure room or may call to secure a Phase I area. * If naloxone or flumazenil are used for reversal, hold in Phase I for continued monitoring from when last reversal dose was given for a minimum of 60 minutes or longer pending the nurse and/or physician discretion of patient condition before discharge to Phase II. Please call the Sedation Physician to re-evaluate and complete post-note for discharge to Phase II area. Do NOT discharge from procedure sedation or Phase 1 until post- sedation evaluation note is complete by procedure /sedation MD Sedation Discharge Instructions to be given to the patient at discharge to home.
--- NOTE | 2020-10-25 19:33 | Post Operative Brief Note ---
Cardiology Brief Post Op Date of Surgery October 25, 2020 Pre & Post Diagnosis CAD Ischemic cardiomyopathy Procedure -- Conference Producer Geovanni Stern MD Music Composition Teacher Susy Estimated Blood Loss 15 Findings See Below 70% prox LAD, 95% mid LAD 95+ mid large OM1 100% distal circumflex ORTHODONTIC BAND MAKER. L-PDA fills via collaterals Unable to engage small non-dominant RCA Non-severe (pullback gradient <20 mmHg) Elevated left and right sided pressures. Anesthesia Type RN Sedation Complications none Disposition Disposition: PCU
[2020-10-25] MEDS: CITALOPRAM 20 MG TAB PO SCH (20:31)
[2020-10-25] MEDS ORDERED: INSULIN GLARGINE SOLOSTAR 100 UNITS/ML 3 ML PEN SC SCH (21:00)
--- NOTE | 2020-10-26 01:25 | Cardiac Catheterization ---
[facility] Data: Saw Edge Fuser Circular Cardiac Status Clinical evaluation leading to the procedure CAD Presenation: Non STEMI Anginal Classification: CCS II Heart Failure: NYHA Class: CCS IV Cardiogenic Shock within 24 Hours: No Cardiac Arrest within 24 Hours: No Imaging Studies Past 6 Months: Yes Stress Studies Past 6 Months: No Diagnostic Physicians Name: Geovanni Stern MD Status: Elective Closure Device Percutaneous Entry Location: Radial Closure Device: Radial Band Recommendations: CABG Intraprocedure Events Significant Disection: No Perforation: No Cardiac Cath Procedure Full Procedure Date October 25, 2020 Pre-Procedure Diagnosis Pre-Procedure Diagnosis: Non STEMI, Valvular Disease, CHF and Cardiomyopathy AUC Score AUC Score: 8 Post-Procedure Diagnosis Post-Procedure Diagnosis: Severe CAD and Elevated Intracardiac Pressures Procedure(s) Performed Procedure(s) Performed: Coronary Angiography, Left Heart Cath and Right Heart Cath Relationship Specialist Geovanni Stern MD Bias Binding Cutter(s) Susy Estimated Blood Loss Estimated Blood Loss: 5 Medication(s) Medication(s): Fentanyl, Heparin, Lidocaine 1%, Nicardipine, Nitroglycerin and Versed Summary of Findings Indication: Admitted with acute heart failure, mild elevated troponin, new severe LV dysfunction and at least moderate aortic stenosis by echo. Access: 6 Fr slender right radial artery, 6 Fr right antecubital vein Catheters: 6 Fr [place]. [place]. Attempted to access right with JR4, AR-1, 3 DRKeila, AL-1 Findings: LM -calcified, diffuse 30 to 40% disease LAD -medium caliber, 70 to 80% proximal stenosis at takeoff of first diagonal, 95% mid segment stenosis just prior to takeoff of second diagonal. Distal vessel with mild diffuse disease and wraps around apex. D1 mild disease. D2 40% mid disease Circumflex -dominant, medium caliber, 95% proximal OM1. Distal circumflex 100% chronic occlusion after takeoff of left PLB. Left PDA fills retrograde via left to left collaterals. RCA -unable to cannulate RCA. Suspect occluded, small nondominant vessel. RA 9 RV 36/12 PA 40/17 (28) PAWP 19 LVEDP 30 PaSat 92% AoSat 63% Thermo CO/CI 5.0/2.1 Pullback gradient across aortic valve 18 mmHg Arterial Closure: TR band Summary: 1. Severe multivessel coronary artery disease -Diffuse 30% left main Proximal LAD 70 to 80%, mid LAD 95% Proximal OM2 95%, 100% distal circumflex [employer]. Left PDA fills via left to left collaterals. Small nondominant RCA likely occluded at ostium. 2. Elevated left and right-sided intracardiac filling pressures 3. Preserved cardiac output 4. Mild pulmonary hypertension (postcapillary) 5. Non-severe aortic stenosis (pullback gradient 18 mmHg). Recommendations: Evaluation for CABG in the setting of multivessel disease, severe LV dysfunction, diabetes Continue diuresis Hemodynamics Rest Ao:: 92/61/75 Final Ao: 101/68/83 LV: 119/30 Recommendations Recommendations: CABG Specimens Specimens: None Radiation Exposure (mGy) -- Contrast (mls) 150 Drains Drains: None Anesthesia Moderate Procedural Complication(s) None Disposition PCU I attest to the content of the Intraoperative Record and any orders documented therein. Any exceptions are noted below. [facility] Card Cath Procedure Codes Cardiac Catheterization Procedure 1: Cardiovascular Cath Procedures: 86739 Coronaries & LHC (+/-LV) & RHC Moderate Sedation Procedure 1: Sedation/Anesthesia: 05115 Mod Sedation by the same physician;Init15 Min Child Age 5 & Up Procedure 2: Sedation/Anesthesia: 99052 Mod Sedation by the same physician; Ea Addit ional15 Minutes PG Care Time/CCT Total # of Minutes Spent Total Time Spent with Patient: Total time spent is greater than 50% in coordination of care (as documented) at patient's floor/unit and/or counseling patient:
[2020-10-26 07:39] LABS: Partial Thromboplastin Time 28.2 Seconds (21.0-31.0)
[2020-10-26 07:47] LABS: Basophils # (auto) 0.02 K/uL (0-0.2); Basophils % (auto) 0.2 %; Eosinophils % (auto) 1.1 %; Hematocrit (blood only) 49.5 % (42-52); Hemoglobin 16.1 g/dL (14.0-18.0); Immature Granulocytes # (auto) 0.03 K/uL (0.00-0.02); Immature Granulocytes % (auto) 0.3 %; Lymphocytes # (auto) 1.23 K/uL (1.2-3.4); Lymphocytes % (auto) 14.1 %; Mean Corpuscular Hgb Conc 32.5 g/dL (32-36); Mean Corpuscular Volume 95.4 fL (80-100); Mean Platelet Volume 9.5 fL (7.4-10.4); Monocytes # (auto) 0.91 K/uL (0.11-0.59); Monocytes % (auto) 10.4 %; Neutrophils # (auto) 6.43 K/uL (1.4-6.5); Neutrophils % (auto) 73.9 %; Platelet Count 263 K/uL (130-400); RDW Coefficient of Variation 13.5 % (11.5-14.5); Red Blood Count 5.19 M/uL (4.7-6.1); White Blood Count 8.72 K/uL (4.8-10.8)
[2020-10-26 07:48] LABS: Albumin Level 2.7 gm/dl (3.4-5.0); Creatinine Clr Calc Pharmacy 99.8 ml/min; Est GFR (African American) 100.2; Est GFR (Non-African American) 86.4; Magnesium 2.2 mg/dl (1.8-2.4)
[2020-10-26 07:51] LABS: Albumin Globulin Ratio 0.6 (0.9-2); Bilirubin,Total 1.1 mg/dl (0.2-1); Globulin 4.5 gm/dl (2.5-4.0); Total Protein 7.2 gm/dl (6.4-8.2)
[2020-10-26] MEDS: SACUBITRIL-VALSARTAN 24-26 MG TAB PO SCH (08:13)
[2020-10-26] MEDS: FUROSEMIDE 40 MG in SYRINGE 0 ML IV SCH (08:14)
[2020-10-26] MEDS: ASPIRIN 81 MG ECTAB PO SCH (08:14)
[2020-10-26] MEDS: POTASSIUM CHLORIDE CRTAB 20 MEQ TABCR PO SCH (08:14)
[2020-10-26] MEDS: INSULIN ASPART 100 UNITS/ML 3 ML PEN SC SCH ×2 (08:17→12:24)
[2020-10-26] MEDS ORDERED: INSULIN GLARGINE SOLOSTAR 100 UNITS/ML 3 ML PEN SC SCH (09:00)
[2020-10-26] MEDS: METOPROLOL SUCC 25MG EXT REL TAB PO SCH (10:04)
--- NOTE | 2020-10-26 10:48 | Ultrasound Report ---
CAROTID ARTERY ULTRASOUND CLINICAL HISTORY: preop cabg COMPARISON STUDY: CTA of the neck May 29, 2016. TECHNIQUE: Real-time, grayscale, and color Doppler sonography of the carotid and vertebral arteries w as performed. Images were viewed in the transverse and longitudinal planes. FINDINGS: There is moderate atherosclerotic plaque. Velocity measurements are listed below. COMMON CAROTID PEAK SYSTOLIC VELOCITY (CM/S): RIGHT 65 LEFT 60 ICA PEAK SYSTOLIC VELOCITY (CM/S): RIGHT 80 LEFT 86 Systolic ratios between the internal to common carotid arteries are normal. Antegrade flow is seen in the vertebral arteries. The external carotid arteries are patent. IMPRESSION: Moderate atherosclerotic plaque without evidence of a hemodynamically significant stenos is within the bilateral common carotid or internal carotid arteries. ACT 112: Negative or not required by law. Electronically signed by: Esa Erazo M.D. 10/26/2020 10:47 AM
--- NOTE | 2020-10-26 11:39 | Cardiology Progress Note ---
Date of Service October 26, 2020 Assessment & Plan (1) Heart failure, systolic, with acute decompensation: (2) CAD (coronary artery disease): (3) Ischemic cardiomyopathy: (4) COPD (chronic obstructive pulmonary disease): (5) Aortic stenosis: (6) Mitral regurgitation: (7) Frequent PVCs: Mr. Tomas presents with acute decompensated systolic heart failure and significant volume overload. It appears that he likely had a severe ischemic event several months ago and is now suffering from progressive ischemic cardiomyopathy. 2D echocardiogram shows severely reduced LV systolic function, EF 15 to 20% and low flow low gradient aortic stenosis along with moderate mitral regurgitation. EKG without acute ischemia. Denies any episodes of chest pain. No shortness of breath at rest. The above findings, pathophysiology and medical implications were discussed with the patient at great lengths. Cardiac catheterization reveals severe multivessel coronary artery disease, so, I believe the most prudent course of action at this point would be for cardiothoracic surgery referral for bypass grafting surgery. Patient is currently feeling well from a clinical standpoint and very anxious for discharge. I will arrange urgent cardiothoracic surgery evaluation as an outpatient with our colleagues in [place]. The patient is in agreement with this plan. I will obtain carotid Dopplers for preop while he is here and then he can be discharged home later on today. Discharge home on current doses of metoprolol succinate, aspirin and Entresto. At this point it does not appear that his blood pressure will tolerate spironolactone so we will hold off. We will also need a prescription for torsemide 20 mg p.o. twice daily along with potassium chloride 40 mEq daily My office will call to arrange CT surgery evaluation and follow-up with me. Okay to discharge to home. Risk of potential lethal arrhythmia discussed, patient declining LifeVest. Admission and Anticipated Discharge Date Admission Date: October 23, 2020 Subjective Patient seen and examined, chart reviewed. States he is feeling very well today. Notes he is able to ambulate without any significant dyspnea. Notes that abdominal distention is also improved. Continues to deny any chest pain, palpitations, lightheadedness, dizziness or syncope. Tolerated cardiac catheterization well without complication. Telemetry reviewed: Normal sinus rhythm with occasional PVCs no sustained arrhythmias. Review of Systems Review of Systems: All systems reviewed & are unremarkable except as noted in HPI & below Physical Exam Physical Exam: General: Awake, alert and oriented x 3. Mild conversational dyspnea while seated in chair. Occasional pursed lip breathing. HEENT: Normocephalic, atraumatic. Pupils equal, round and reactive to light and accommodation. Extraocular muscles are intact. Anicteric sclera. Moist mucous membranes. Neck: No JVD. No bruit. Cardiovascular: Regular. Positive S-4. Normal S-1 and S-2. No S-3. 3/6 mid to late systolic ejection murmur, greatest at the right sternal border, second intercostal space with radiation to the bilateral carotids. No rubs. Pulmonary: Poor air movement the bilateral bases with diminished breath sounds diffusely. Scattered rhonchi. Abdomen: Bowel sounds x 4, soft. No rebound, guarding or tenderness. No organomegaly. Extremities: No clubbing, cyanosis. +1 bilateral lower extremity pitting edema. +2 pedal pulses bilaterally. Skin: Warm and dry. Results & Data ([facility]) Vital Signs (Past 12 Hours) Vital Signs Temp Pulse Pulse Resp BP Pulse Ox Pulse Ox 10/26/20 08:11 36.5 C 82 18 95/63 L 94 10/26/20 04:03 36.6 C 88 20 110/72 95 10/26/20 02:12 87 94 10/25/20 23:35 36.7 C 98 H 20 104/72 95 Diagnostic Findings Summary: 1. Severe multivessel coronary artery disease -Diffuse 30% left main Proximal LAD 70 to 80%, mid LAD 95% Proximal OM2 95%, 100% distal circumflex EXTENSION SERVICE SPECIALIST IN CHARGE. Left PDA fills via left to left collaterals. Small nondominant RCA likely occluded at ostium. 2. Elevated left and right-sided intracardiac filling pressures 3. Preserved cardiac output 4. Mild pulmonary hypertension (postcapillary) 5. Non-severe aortic stenosis (pullback gradient 18 mmHg).
--- NOTE | 2020-10-26 12:43 | Pharmacy Report ---
Pharmacy Glycemic Short Note 2 - Date of Service October 26, 2020 - Glycemic Short BSG Results (Last 24 hours): 10/25/20 10/25/20 10/26/20 17:54 20:14 06:43 Glucose 127 H POC Glucose 109 H 156 H 10/26/20 10/26/20 07:39 11:40 Glucose POC Glucose 119 H 119 H OUTPATIENT ANTIDIABETIC REGIMEN: * Metformin ER 1000 mg PO QAM ASSESSMENT: * Patient received total of 32 units of insulin yesterday: 20 units basal + 12 units bolus. * Fasting BSG this AM was 119 mg/dl. Continued with same dose of Lantus today AM. HS Lantus dose yesterday was not needed since BSG was less than 160 mg/dl. * Continued same Novolog parameters. * PLAN FOR INPATIENT GLYCEMIC CONTROL: * Hold outpatient oral diabetes medications * Basal insulin * Lantus 20 units SQ QAM and HS dosing between 0-20 units based on BSG scale. Patient did not require any for 2 days. * Bolus insulin * NovoLog per scale ACHS or Q6hrs while NPO * Goal Range: Low 110 mg/dL - High 140 mg/dL * Correction Factor: 20 mg/dL/unit * Nutritional / Prandial insulin per carb ratio of 1 unit per 6 grams CHO consumed PLAN FOR DISCHARGE: * HbA1c = 10.7% on 10/24/20 * Continue Metformin ER 1000 mg PO QAM. Patient unable to tolerate higher doses due to GI side effects. * Recommend starting Lantus 15 units SQ QAM with SMBG. * Recommend close follow up with outpatient provider on discharge.
--- NOTE | 2020-10-26 12:47 | Hospitalist Progress Note ---
Date of Service October 26, 2020 Assessment & Plan (1) Heart failure, systolic, with acute decompensation: CAD (coronary artery disease), Cardiac catheterization revealed severe multivessel coronary artery disease on 10/25/2020 Ischemic cardiomyopathy COPD (chronic obstructive pulmonary disease) Aortic stenosis Mitral regurgitation Frequent PVCs -as per admission history and physical on 10/23/2020 "70-year-old male with PMH of type 2 diabetes, hypertension, mild aortic stenosis, depression, history of CVA and other medical problems listed below who presents with progressive dyspnea exertion x6 weeks. Patient was seen at [facility] today and EKG per records was concerning for new ST depressions in multiple leads including V4, V5 and lead I. Given full dose aspirin but refused transport per EMS. Daughter drove him to ED for further evaluation. Patient endorses progressive shortness of breath, particularly when walking around the house more than 20 feet. Is also started to feel significantly short of breath when lying flat and has been sleeping in a recliner at night for the past 5 weeks. No chest pain or palpitations. Had a productive cough 1 month ago that is dissipated. Does notice some swelling in legs but denies any overall weight gain. Denies any history of known CAD or congestive heart failure. Did follow with Dr. Brown 3 years ago for chest pain and at that time underwent an echocardiogram showing grade 1 diastolic dysfunction as well as moderate LVH. Had a stress echo at that time that showed no inducible ischemia." -admission CXR with cardiomegaly with bilateral reticular opacities suggestive of pulmonary vascular congestion versus a nonspecific pneumonitis; admission EKG sinus rhythm with short IN interval and occasional PVCs as well as right bundle branch block, initial troponin elevated at 0.308, BNP elevated at 3755; patient was started on IV Lasix on admission -as per 10/24/2020 cardiology assessment that patient has "acute decompensated systolic heart failure and significant volume overload. It appears that he likely had a severe ischemic event several months ago and is now suffering from progressive ischemic cardiomyopathy. 2D echocardiogram shows severely reduced LV systolic function, EF 15 to 20% and low flow low gradient aortic stenosis along with moderate mitral regurgitation. EKG without acute ischemia. Denies any episodes of chest pain. No shortness of breath at rest. -current plans by cardiology is for patient to undergo right and left cardiac catheterization after further IV Lasix and IV heparin on 10/24/2020; was also started on low dose Beta pau -10/25/2020: patient seen and examined at the bedside. Patient is scheduled to cardiac labor utilization superintendent at noon time. Patient examined by hospitalist while sitting up in the chair. He is breathing comfortably on room air. He continues to have bilateral lower extremity edema and crackles of bilateral lower lung wills. Patient denies acute chest pain or pain elsewhere of the body. His review of systems are negative for any other symptoms 10/26/2020 (summary and discharge plans and instructions on this admission , the 2D echocardiogram shows severely reduced LV systolic function, EF 15 to 20% and low flow low gradient aortic stenosis along with moderate mitral regurgitation. Cardiac catheterization revealed severe multivessel coronary artery disease on 10/25/2020 No oxygen desaturation on overnight oximetry Carotid Ultrasound 10/26/2020: Moderate atherosclerotic plaque without evidence of a hemodynamically significant stenosis within the bilateral common carotid or internal carotid arteries 10/26/[address] Brown that he will arrange cardiothoracic surgery evaluation as an outpatient with [facility] in [place] in regards for referral for coronary artery bypass grafting surgery (CABG) but that patient can be discharged from [facility] on 10/26/2020 that patient can be discharged on metoprolol succinate 12.5 mg daily, aspirin 81 mg daily, Entresto as BID (meaning twice a day dosing), torsemide 20 mg p.o. twice daily dosing, potassium chloride 40 mEq daily In regards to Diabetes medications and supplies: Lantus Solostar pen for 15 units in morning daily. Try to take this at the same time every morning. Continue Metformin ER 1000mg in morning. Lifestyle changes are also encouraged. Try to check your blood sugar 2x/day. Fasting/before breakfast and another time. Try to vary this other time from day to day (before lunch, before supper, bedtime). Please notify your provider of blood sugar levels frequently above 180 or below 80 so that insulin dose adjustments can be made. Paper prescription provided for: Insulin pen needles - " (4mm) x 32G. Accu-Chek Guide Me glucose meter. Accu-Chek Guide test strips to check 2x/day. Accu-Chek FastClix lancets to check 2x/day. [facility] [place] [address] already scheduled appointments 11/02/2020 10:00 AM Provider Anthony Segovia MD Department Family [facility] 11/19/2020 1:00 PM Provider Jamarcus Brown Jr., Department Cardiology, [facility] ) (2) DM type 2 (diabetes mellitus, type 2): Type 2 diabetes mellitus without snf current use of insulin, with hyperglycemia -HbA1c 9.9 in January 2019 -HbA1c 10.7 on this admission -hold home dose metformin while inpatient -admission blood sugar 348 and pharmacy glycemic control was asked to help with glucose management while in the hospital -discharge instructions as above (3) Hypertension: -on losartan 50 mg daily is stopped after this admission -discharge instructions as above on cardiac medications (4) Depression: -Continue SSRI Code status: FULL Admission and Anticipated Discharge Date Admission Date: October 23, 2020 Subjective Patient seen and examined at the bedside. He was seen by cardiology physician who recommended hospital discharge. Patient denies acute pain. no abdomen pain. no chest pain. breathing on room air. denies other symptoms on review of systems. discharge plans and instructions discussed at length Review of Systems Review of Systems: All systems reviewed & are unremarkable except as noted in Subjective Physical Exam Constitutional: cooperative and comfortable Eyes: PERRL, conjunctivae normal, anicteric sclerae EOM intact bilaterally ENMT: external ear and nose normal, oropharynx normal Neck: normal visual inspection Respiratory: normal respiratory effort Auscultation: + crackles Cardiovascular: Rate/Rhythm: regular rate and regular rhythm Gastrointestinal (Abdomen): normal bowel sounds, soft, nontender, no hepatosplenomegaly Musculoskeletal: Head/Neck/Chest: normocephalic and head atraumatic Extremities: + lower leg abnormality (edema of bilateral lower extremities improved) Neurologic: PERRL, EOMI, accommodation nl, no face palsy, no dysarthria CN's II-XI intact bilaterally and moves all extremities Psychiatric: A+Ox3, euthymic affect Results & Data Results & Data ([facility]) Vital Signs (Past 12 Hours) Vital Signs Temp Pulse Pulse Resp BP Pulse Ox Pulse Ox 10/26/20 11:51 36.6 C 90 18 90/64 L 93 10/26/20 08:11 36.5 C 82 18 95/63 L 94 10/26/20 04:03 36.6 C 88 20 110/72 95 10/26/20 02:12 87 94
--- NOTE | 2020-10-26 12:53 | Discharge Summary ---
Date of Service October 26, 2020 Admission HPI Per Admitting Provider This is a 70-year-old male with PMH of type 2 diabetes, hypertension, mild aortic stenosis, depression, history of CVA and other medical problems listed below who presents with progressive dyspnea exertion x6 weeks. Patient was seen at [facility] today and EKG per records was concerning for new ST depressions in multiple leads including V4, V5 and lead I. Given full dose aspirin but refused transport per EMS. Daughter drove him to ED for further evaluation. Patient endorses progressive shortness of breath, particularly when walking around the house more than 20 feet. Is also started to feel significantly short of breath when lying flat and has been sleeping in a recliner at night for the past 5 weeks. No chest pain or palpitations. Had a productive cough 1 month ago that is dissipated. Does notice some swelling in legs but denies any overall weight gain. Denies any history of known CAD or congestive heart failure. Did follow with Dr. Brown 3 years ago for chest pain and at that time underwent an echocardiogram showing grade 1 diastolic dysfunction as well as moderate LVH. Had a stress echo at that time that showed no inducible ischemia. In ED, patient is afebrile and hemodynamically stable. Comfortable at rest, without chest pain or shortness of breath. EKG here with sinus rhythm with short LA interval and occasional PVCs as well as right bundle branch block. Initial troponin mildly elevated at 0.308. BNP elevated at 3755. Initial glucose 348 with beta hydroxybutyric acid 9.27. CXR with cardiomegaly with bilateral reticular opacities suggestive of pulmonary vascular congestion versus a nonspecific pneumonitis. Started on IV heparin for concern of NSTEMI and given 20mg IV Lasix for volume overload. Covid screen is negative. Denies any fever, chills, lightheadedness, headache, palpitations, wheezing, nausea, vomiting, abdominal pain, dysuria, diarrhea or constipation. Principal Diagnosis Heart failure, systolic, with acute decompensation CAD (coronary artery disease) - Cardiac catheterization revealed severe multivessel coronary artery disease on 10/25/2020 Ischemic cardiomyopathy Aortic stenosis Mitral regurgitation Frequent PVCs Hypertension DM type 2 (diabetes mellitus, type 2) COPD (chronic obstructive pulmonary disease) Discharge Exam Constitutional cooperative and comfortable Eyes PERRL, conjunctivae normal, anicteric sclerae EOM intact bilaterally ENMT external ear and nose normal, oropharynx normal Neck normal visual inspection Respiratory normal respiratory effort Auscultation: + crackles Cardiovascular Rate/Rhythm: regular rate and regular rhythm Gastrointestinal (Abdomen) normal bowel sounds, soft, nontender, no hepatosplenomegaly Musculoskeletal Head/Neck/Chest: normocephalic and head atraumatic Extremities: + lower leg abnormality (edema of bilateral lower extremities improved) Neurologic PERRL, EOMI, accommodation nl, no face palsy, no dysarthria CN's II-XI intact bilaterally and moves all extremities Psychiatric A+Ox3, euthymic affect Discharge Data Allergies Allergy/AdvReac Type Severity Reaction Status Date / Time No Known Drug Allergies Allergy Unknown NONE Verified 10/23/20 14:36 Consultations 10/23/20 14:35 ED Decision to Admit Stat 10/23/20 16:19 Consult Cardiology Routine Procedures Performed Operation Date: 10/25/20 12:00 Actual Procedures p Cath, Right and Left Heart - David Stern MD s Cineradiography w/Routine Exam - David Stern MD Ordered Studies 10/25/20 10:22 CL Cath Imgs for PACS use only Routine 10/26/20 09:16 US carotid doppler BI Routine Diabetes Follow up Diabetes Follow-up Needed for HgbA1c >9% Hospital Course (1) Heart failure, systolic, with acute decompensation: CAD (coronary artery disease), Cardiac catheterization revealed severe multivessel coronary artery disease on 10/25/2020 Ischemic cardiomyopathy COPD (chronic obstructive pulmonary disease) Aortic stenosis Mitral regurgitation Frequent PVCs -as per admission history and physical on 10/23/2020 "70-year-old male with PMH of type 2 diabetes, hypertension, mild aortic stenosis, depression, history of CVA and other medical problems listed below who presents with progressive dy spnea exertion x6 weeks. Patient was seen at [facility] today and EKG per records was concerning for new ST depressions in multiple leads including V4, V5 and lead I. Given full dose aspirin but refused transport per EMS. Daughter drove him to ED for further evaluation. Patient endorses progressive shortness of breath, particularly when walking around the house more than 20 feet. Is also started to feel significantly short of breath when lying flat and has been sleeping in a recliner at night for the past 5 weeks. No chest pain or palpitations. Had a productive cough 1 month ago that is dissipated. Does notice some swelling in legs but denies any overall weight gain. Denies any history of known CAD or congestive heart failure. Did follow with Dr. Brown 3 years ago for chest pain and at that time underwent an echocardiogram showing grade 1 diastolic dysfunction as well as moderate LVH. Had a stress echo at that time that showed no inducible ischemia." -admission CXR with cardiomegaly with bilateral reticular opacities suggestive of pulmonary vascular congestion versus a nonspecific pneumonitis; admission EKG sinus rhythm with short LA interval and occasional PVCs as well as right bundle branch block, initial troponin elevated at 0.308, BNP elevated at 3755; patient was started on IV Lasix on admission -as per 10/24/2020 cardiology assessment that patient has "acute decompensated systolic heart failure and significant volume overload. It appears that he likely had a severe ischemic event several months ago and is now suffering from progressive ischemic cardiomyopathy. 2D echocardiogram shows severely reduced LV systolic function, EF 15 to 20% and low flow low gradient aortic stenosis along with moderate mitral regurgitation. EKG without acute ischemia. Denies any episodes of chest pain. No shortness of breath at rest. -current plans by cardiology is for patient to undergo right and left cardiac catheterization after further IV Lasix and IV heparin on 10/24/2020; was also started on low dose Beta pau -10/25/2020: patient seen and examined at the bedside. Patient is scheduled to cardiac finishing lab technician at noon time. Patient examined by hospitalist while sitting up in the chair. He is breathing comfortably on room air. He continues to have bilateral lower extremity edema and crackles of bilateral lower lung wills. Patient denies acute chest pain or pain elsewhere of the body. His review of systems are negative for any other symptoms 10/26/2020 (summary and discharge plans and instructions on this admission , the 2D echocardiogram shows severely reduced LV systolic function, EF 15 to 20% and low flow low gradient aortic stenosis along with moderate mitral regurgitation. Cardiac catheterization revealed severe multivessel coronary artery disease on 10/25/2020 No oxygen desaturation on overnight oximetry Carotid Ultrasound 10/26/2020: Moderate atherosclerotic plaque without evidence of a hemodynamically significant stenosis within the bilateral common carotid or internal carotid arteries 10/26/[address] Brown that he will arrange cardiothoracic surgery evaluation as an outpatient with [facility] in [place] in regards for referral for coronary artery bypass grafting surgery (CABG) but that patient can be discharged from [facility] on 10/26/2020 that patient can be discharged on metoprolol succinate 12.5 mg daily, aspirin 81 mg daily, Entresto as BID (meaning twice a day dosing), torsemide 20 mg p.o. twice daily dosing, potassium chloride 40 mEq daily In regards to Diabetes medications and supplies: Lantus Solostar pen for 15 units in morning daily. Try to take this at the same time every morning. Continue Metformin ER 1000mg in morning. Lifestyle changes are also encouraged. Try to check your blood sugar 2x/day. Fasting/before breakfast and another time. Try to vary this other time from day to day (before lunch, before supper, bedtime). Please notify your provider of blood sugar levels frequently above 180 or below 80 so that insulin dose adjustments can be made. Paper prescription provided for: Insulin pen needles - 5/32" (4mm) x 32G. Accu-Chek Guide Me glucose meter. Accu-Chek Guide test strips to check 2x/day. Accu-Chek FastClix lancets to check 2x/day. Discharge medication sent electronically to [facility], [place] [address] already scheduled appointments 11/02/2020 10:00 AM Provider [facility]/2020 1:00 PM Provider Jamarcus Brown Jr., Department Cardiology, [facility] ) (2) DM type 2 (diabetes mellitus, type 2): Type 2 diabetes mellitus without manager terminal current use of insulin, with hyperglycemia -HbA1c 9.9 in January 2019 -HbA1c 10.7 on this admission -hold home dose metformin while inpatient -admission blood sugar 348 and pharmacy glycemic control was asked to help with glucose management while in the hospital -discharge instructions as above (3) Hypertension: -on losartan 50 mg daily is stopped after this admission -discharge instructions as above on cardiac medications (4) Depression: -Continue SSRI Code status: FULL Total Time Total Time Spent Total Time Spent (In Minutes): 40 minutes Total Time Includes: Examination of the Patient, Discharge Planning, Medication Reconciliation and Communication With Other Providers Discharge Plan Discharge Items Patient Disposition: Home - Self-Care Reason For Visit: DYSPNEA ON EXERTION, NSTEMI Discharge Diagnosis: Heart failure, systolic, with acute decompensation CAD (coronary artery disease) - Cardiac catheterization revealed severe multivessel coronary artery disease on 10/25/2020 Ischemic cardiomyopathy Aortic stenosis Mitral regurgitation Frequent PVCs Hypertension DM type 2 (diabetes mellitus, type 2) COPD (chronic obstructive pulmonary disease) Condition on Discharge: Good Activity: Per Instructions section Lifting: Wait until after follow-up appointment Bathing: No limitations Exercise/Sports: Wait until after follow-up appointment Driving/Machine Use: No limitations Weightbearing: Full weightbearing Non-emergency contact: Primary Care Provider and Generating Plant Superintendent Call non-emergency contact if: you have any medication questions Follow-up/Referrals: Anthony Segovia MD [Primary Care Provider] - Diet: Carb Consistent or DM2 and Heart Healthy Addtl Attending Provider Instructions: 10/26/[address] Brown that he will arrange cardiothoracic surgery evaluation as an outpatient with [facility] in [place] in regards for referral for coronary artery bypass grafting surgery (CABG) but that patient can be discharged from [facility] on 10/26/2020 that patient can be discharged on metoprolol succinate 12.5 mg daily, aspirin 81 mg daily, Entresto as BID (meaning twice a day dosing), torsemide 20 mg p.o. twice daily dosing, potassium chloride 40 mEq daily In regards to Diabetes medications and supplies: Lantus Solostar pen for 15 units in morning daily. Try to take this at the same time every morning. Continue Metformin ER 1000mg in morning. Lifestyle changes are also encouraged. Try to check your blood sugar 2x/day. Fasting/before breakfast and another time. Try to vary this other time from day to day (before lunch, before supper, bedtime). Please notify your provider of blood sugar levels frequently above 180 or below 80 so that insulin dose adjustments can be made. Paper prescription provided for: Insulin pen needles - 5/32" (4mm) x 32G. Accu-Chek Guide Me glucose meter. Accu-Chek Guide test strips to check 2x/day. Accu-Chek FastClix lancets to check 2x/day. Discharge medication sent electronically to [facility], [place] [address] already scheduled appointments 11/02/2020 10:00 AM Provider Anthony Segovia MD Department [facility] 11/19/2020 1:00 PM Provider Jamarcus Brown Jr., Department Cardiology, [facility] Taper/Finisher Provider Instructions: on this admission , the 2D echocardiogram shows severely reduced LV systolic function, EF 15 to 20% and low flow low gradient aortic stenosis along with moderate mitral regurgitation. Cardiac catheterization revealed severe multivessel coronary artery disease on 10/25/2020 No oxygen desaturation on overnight oximetry Carotid Ultrasound 10/26/2020: Moderate atherosclerotic plaque without evidence of a hemodynamically significant stenosis within the bilateral common carotid or internal carotid arteries Pending Studies at Discharge: No Stand-Alone Forms: My [facility] [employer]ala[employer], Smoking Cessation Medications and DC Order Prescriptions: New aspirin 81 mg Tablet,Delayed Release (Dr/Ec) 81 mg PO DAILY 30 Days Qty: 30 RF: 0 metoprolol succinate 25 mg Tablet Extended Release 24 Hr 12.5 mg PO QAM 30 Days Qty: 15 RF: 0 Entresto 24-26 mg Tablet 1 tab PO BID 30 Days Qty: 60 RF: 0 potassium chloride [Klor-Con M20] 20 mEq Tablet,Er Particles/Crystals 40 meq PO DAILY 30 Days Qty: 60 RF: 0 torsemide 20 mg tablet 20 mg PO BID 30 Days Qty: 60 RF: 0 Lantus Solostar U-100 Insulin 100 unit/mL (3 mL) Insulin Pen 15 unit SC DAILY 30 Days Qty: 15 RF: 0 metformin 1,000 mg tablet 1,000 mg PO DAILY 30 Days Qty: 30 RF: 0 Continued citalopram 10 mg tablet 10 mg PO QPM RF: 0 Discontinued losartan 50 mg tablet 50 mg PO QAM RF: 0 metformin 500 mg tablet extended release 24 hr 1,000 mg PO QAM RF: 0 aspirin 81 mg Tablet 81 mg PO DAILY RF: 0 Discharge Orders: Discharge Order (Routine); Ordered 10/26/20 Ordered By: Antoine Vallejo Admission Data Admit Date/Time: 10/23/20 15:17 Attending Provider: Antoine Vallejo Admit Provider: Amarjit Tipton Primary Care Provider: Anthony Segovia Other Providers: Amarjit Tipton ; Jamarcus Brown
--- NOTE | 2020-10-29 07:56 | Communication Note ---
Date of Service: October 29, 2020 I received a call from daughter of [facility] this AM. She reported patient was still having shortness of breath of symptoms and wanted to know what could be done between coming to ED in [facility] versus ED in [facility] I answered that if patient's symptoms have worsened then the patient should likely come to the Emergency Room at [facility] immediately if this is their closest hospitalization for evaluation and medical stabilization. Once that would be done, patient likely will need transfer to [facility] to CABG as the previous discharge plans from cardiology Dr. Brown was to have these evaluations done in the near future The daughter appears to express that patient is generally stable but simply wants the shortness of breath symptoms dealt with definitively and she plans to take patient to emergency room to [facility] in [place] for further evaluation including inpatient CABG evaluation if he were admitted from the ER in [place]. I have notified our current [facility] substation operator helper generation at [facility] cardiology Dr. Kulkarni about the patient's plans
== END 2020-10-26 14:30 | disposition home or self-care (01) | DRG 287 ==
LOC: ED 12:51 → SUATTDRO 15:17 → 2S 15:17